=== PATIENT | female | born 1940 | race Caucasian/White ===

== ENCOUNTER → 2019-06-07 10:39 | Outpatient (BNVA) | payer MEDICARE, SELFPAY | PROVIDERS: Family Provider Family Medicine; PCP Family Medicine; Visit Provider Family Medicine | DX: C73 Malignant neoplasm of thyroid gland (principal); I10 Essential (primary) hypertension | CPT/HCPCS: 36415; 80053; 84439; 84443; 85025 ==

== ENCOUNTER 2019-07-10 10:17 | Emergency (ER) | payer MEDICARE, SELFPAY ==
[2019-07-10 10:19] VITALS: BP 153/94; PULSE 92; RESP 20; TEMP 36.6; O2SAT 87; BMI 21.4
--- NOTE | 2019-07-10 10:22 | ED_ITS ---
Entered by Dinah Stewart, acting as scribe for Daron Palomares DO HPI - SOB/Dyspnea General: Chief Complaint: Shortness of Breath/Dyspnea Stated Complaint: SOB Time Seen by Provider: 07/10/19 10:22 History of Present Illness: HPI Narrative: 79 yo female presents with shortness of breath. Pt states that she is coughing up blood. Pt states that she had thyroid cancer a few years ago. She was seen in November of last year had lung nodules she has not had a lot of follow-up on those. She is obviously stridorous during exam. Associated symptoms: Reports hemoptysis; Deny abdominal pain, chest pain, dizziness, extremity pain, fever(s), nausea, orthopnea, palpitations, polydipsia, polyuria, syncope or vomiting Review of Systems Const: Denies: fever, chills, body aches, fatigue, malaise or night sweats Eyes: Denies: change in vision or blurry vision ENMT: Denies: throat pain, oral sores/lesions, dental pain, nasal discharge or nasal congestion Card: Denies: chest pain, palpitations, irregular heart rhythm, edema, syncope, shortness of breath on exertion, shortness of breath when lying down or leg pain with exertion Resp: Reports: shortness of breath, wheezing and coughing up blood GI: Denies: abdominal pain, nausea, vomiting, vomiting blood, coffee grounds in vomit, difficulty swallowing, heartburn/indigestion, diarrhea, constipation, cramping, blood in stool or black tarry stool : Denies: flank pain, painful urination, urinary frequency, urinary urgency, urinary incontinence or blood in urine Musc: Denies: neck pain, back pain, extremity pain, extremity swelling, joint pain or joint swelling Skin/Breast: Denies: rash, itching or redness Neuro: Denies: headache, numbness in extremities, weakness in extremities, changes in sensation, lack of coordination, difficulty walking, frequent falls, dizziness, vertigo or confusion Psych: Denies: anxiety, depression, loss of interest, visual hallucinations, auditory hallucinations, suicidal ideation or homicidal ideation Endo: Denies: excessive urination, excessive thirst, tired all the time or cold intolerance Herman/Lymph: Denies: easy bruising, easy bleeding, petechiae, enlarged lymph nodes or tender lymph nodes PFSH ED PFSH: Statuses (acute, chronic, etc) shown below reflect problem list status as previously entered and may not be historically accurate Medical History (Updated 07/10/19 @ 15:41 by Daron Palomares DO) Anxiety (Acute) Thyroid cancer (Acute) Surgical History (Updated 07/10/19 @ 10:24 by Dinah Stewart) Hx of hernia repair (Acute) Hx of hysterectomy (Acute) Social History Smoking and tobacco status: former smoker Physical Exam Const: COMMON NORMALS: average body habitus, oriented x3 and alert GENERAL APPEARANCE: cooperative, comfortable, well kempt and well developed NUTRITIONAL APPEARANCE: not obese ORIENTATION/CONSCIOUSNESS: Yes awake, Yes oriented to person and Yes oriented to place HENMT: COMMON NORMALS: normocephalic, head/scalp atraumatic, EAC's normal, TM's normal bilaterally, external nose normal, moist oral mucous membranes and oropharynx normal HEAD & SCALP: normocephalic and atraumatic NOSE: big machine consultant al nose normal EXTERNAL AUDITORY CANAL: EAC's normal TYMPANIC MEMBRANE: TM's normal bilaterally MOUTH: oral and palatal mucosa normal, lip normal and tongue normal THROAT: posterior oropharynx normal and tonsils normal OTHER: Audible stridor on exam Eye: COMMON NORMALS: PERRL, EOMs intact bilaterally, conjunctivae normal and no scleral icterus CONJUNCTIVA: Yes conjunctivae normal PUPIL: Yes PERRL Neck/C-Spine: COMMON NORMALS: full ROM, no lymphadenopathy, supple, no meningeal signs and thyroid normal THYROID: thyroid normal and asymmetrical Lymph: LYMPHATIC: no lymphadenopathy noted Cardio: COMMON NORMALS: regular rate and regular rhythm RATE: regular rate RHYTHM: regular rhythm HEART SOUNDS: no murmurs GI: COMMON NORMALS: normal to inspection, nondistended, normoactive bowel sounds, soft to palpation and no hepatosplenomegaly PALPATION: Yes soft and Yes no hepatosplenomegaly : COMMON NORMALS: Yes no CVA tenderness BLADDER/KIDNEY EXAM: Yes no CVA tenderness Back/Pelvis: COMMON NORMALS: no CVA tenderness LUMBAR SPINE/LOWER BACK: Yes normal to inspection Extremity: COMMON NORMALS: no clubbing, cyanosis or edema, no calf tenderness and no pedal edema Neuro: COMMON NORMALS: oriented x3 SENSORIUM/ORIENTATION: Yes alert, Yes oriented to person and Yes oriented to place MENINGEAL SIGNS: Yes no meningeal signs Psych: APPEARANCE: Yes well kempt Skin: COMMON NORMALS: no rashes or lesions noted and skin turgor normal GENERAL SKIN EXAM: no rashes or lesions noted and turgor normal Course ED course: Patient has severe compromise of the airway at the level of the sternoclavicular joint. It is down to a diameter of 3 mm in width although it has a moderate length to it. Her oxygen saturations improved with supplemental oxygen she is awake and alert at this time there is nothing we can do in our facility to secure her airway at this time. Attempts to intubate her would likely be disastrous and cause significantly more bleeding. To secure her airway by tracheotomy would require sternotomy to get below the level of the tumor. The majority of the tumor is anterior so even angling down at the sternal notch would likely not be effective discussed with Dr. Link who reviewed the films and he agrees. Unfortunately this will require us to fly her to a tertiary care facility without securing an airway but at this time Dr. Link and I agree this is actually likely the best option. If we were to attempt to do this here surgically Dr. Link is concerned that bleeding would worsen and we do not have the appropriate equipment to manage a lesion such as this. Discussed with the family they expressed understanding will fly emergently to [facility] per their request. Consultations: Consultation #1: Contacted [facility] in [facility]. Per families reqest. Spoke with their call center, they stated that they will call us back when they have a physician online. Time: 14:12 Vital Signs: Vital signs: Vital Signs Temperature 97.9 F 07/10/19 10:19 Pulse Rate 88 07/10/19 15:22 Respiratory Rate 20 H 07/10/19 15:22 Blood Pressure 170/76 07/10/19 15:22 Pulse Oximetry 97 07/10/19 15:22 MDM - SOB/Dyspnea Lab Data: Labs: Lab Results 07/10/19 07/10/19 07/10/19 Range/Units 10:33 10:34 10:34 WBC 5.7 (4.0-10.0) 10^3/ uL RBC 4.38 (4.1-5.3) 10^6/u L Hgb 11.4 L (11.5-15.3) g/dL Hct 37.5 (37.0-47.0) % MCV 85.6 (81-99) fL MCH 26.0 L (28.0-34.0) pg MCHC 30.4 (30.0-36.0) g/dL RDW 13.7 (12.1-15.1) % Plt Count 321 (130-400) 10^3/c mm MPV 10.0 (7.4-10.4) fL Neut % (Auto) 63.1 % Lymph % (Auto) 26.8 % Metcalfe % (Auto) 7.7 % Eos % (Auto) 1.1 % Baso % (Auto) 0.9 % Neut # (Auto) 3.6 (1.8-7.7) 10^3/u L Lymph # (Auto) 1.5 (0.8-4.8) 10^3/u L Metcalfe # (Auto) 0.4 (0.2-0.9) 10^3/u L Eos # (Auto) 0.1 (0.0-0.8) 10^3/u L Baso # (Auto) 0.1 (0.0-0.1) 10^3/u L Nucleated RBC % (a uto) 0 % Nucleated RBCs # 0.0 /100WBC PT 14.00 H (10.5-13.3) SECO NDS INR 1.04 (0.8-1.2) Specimen Type Arterial Sample Site Radial, right ABG pH 7.41 (7.35-7.45) ABG pCO2 43.1 (35-45) mmHg ABG pO2 60.7 L (80.0-100.0) mmH g ABG HCO3 27.4 H (22-26) mmol/L ABG Base Excess 2.4 H (-2.0-2.0) mmol/ L Sathish Test Pos Hematocrit 36.6 L (37-47) % Hgb O2 Saturation 89.0 L (95-100) % Carboxyhemoglobin 0.7 (0.4-20.1) %THgb Methemoglobin 0.9 (0.4-1.5) % Total Hemoglobin 11.9 L (12-16) g/dL O2 Delivery Device Room air FiO2 21.0 % Manager Government ID ed Sodium (136-145) mmol/L Potassium (3.5-5.1) mmol/L Chloride (98-107) mmol/L Carbon Dioxide (22-29) mmol/L Anion Gap (5-19) BUN (8-23) mg/dL Creatinine (0.5-0.9) mg/dL Glucose (65-115) mg/dL Calcium (8.5-10.5) mg/dL Total Bilirubin (0.15-1.2) mg/dL AST (0-32) U/L ALT (0-33) U/L Alkaline Phosphata se (35-105) IU/L Total Protein (6.6-8.7) g/dL Albumin (3.5-5.2) g/dL Globulin (1.3-4.6) g/dL Lipase (13-60) U/L Influenza Type A A g (Negative) POC Influenza B Ag (Negative) 07/10/19 07/10/19 Range/Units 10:34 10:43 WBC (4.0-10.0) 10^3/ uL RBC (4.1-5.3) 10^6/u L Hgb (11.5-15.3) g/dL Hct (37.0-47.0) % MCV (81-99) fL MCH (28.0-34.0) pg MCHC (30.0-36.0) g/dL RDW (12.1-15.1) % Plt Count (130-400) 10^3/c mm MPV (7.4-10.4) fL Neut % (Auto) % Lymph % (Auto) % Metcalfe % (Auto) % Eos % (Auto) % Baso % (Auto) % Neut # (Auto) (1.8-7.7) 10^3/u L Lymph # (Auto) (0.8-4.8) 10^3/u L Metcalfe # (Auto) (0.2-0.9) 10^3/u L Eos # (Auto) (0.0-0.8) 10^3/u L Baso # (Auto) (0.0-0.1) 10^3/u L Nucleated RBC % (a uto) % Nucleated RBCs # /100WBC PT (10.5-13.3) SECO NDS INR (0.8-1.2) Specimen Type Sample Site ABG pH (7.35-7.45) ABG pCO2 (35-45) mmHg ABG pO2 (80.0-100.0) mmH g ABG HCO3 (22-26) mmol/L ABG Base Excess (-2.0-2.0) mmol/ L Sathish Test Hematocrit (37-47) % Hgb O2 Saturation (95-100) % Carboxyhemoglobin (0.4-20.1) %THgb Methemoglobin (0.4-1.5) % Total Hemoglobin (12-16) g/dL O2 Delivery Device FiO2 % Manager Government ID Sodium 138 (136-145) mmol/L Potassium 4.0 (3.5-5.1) mmol/L Chloride 102 (98-107) mmol/L Carbon Dioxide 25 (22-29) mmol/L Anion Gap 15.0 (5-19) BUN 18 (8-23) mg/dL Creatinine 0.5 (0.5-0.9) mg/dL Glucose 120 H (65-115) mg/dL Calcium 9.1 (8.5-10.5) mg/dL Total Bilirubin 0.4 (0.15-1.2) mg/dL AST 14 (0-32) U/L ALT 8 (0-33) U/L Alkaline Phosphata se 122 H (35-105) IU/L Total Protein 6.9 (6.6-8.7) g/dL Albumin 3.3 L (3.5-5.2) g/dL Globulin 3.6 (1.3-4.6) g/dL Lipase 31 (13-60) U/L Influenza Type A A g Negative (Negative) POC Influenza B Ag Negative (Negative) Discharge Plan Discharge Patient Disposition: Transfer to ED Clinical Impression: Acute airway obstruction, 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 Condition: Stable Prescriptions: No Action carvedilol 3.125 mg tablet 3.125 mg PO BID RF: 0 isosorbide mononitrate 30 mg tablet extended release 24 hr 30 mg PO DAILY RF: 0 levothyroxine 88 mcg capsule 88 mcg PO DAILY RF: 0 clotrimazole-betamethasone 1-0.05 % lotion 1 applic TOPICAL BID RF: 0 pantoprazole [Protonix] 40 mg tablet,delayed release (DR/EC) 40 mg PO DAILY PRN (Reason: Heartburn) RF: 0 aspirin 81 mg Tablet,Chewable 81 mg PO DAILY RF: 0 triamcinolone acetonide 0.1 % cream 1 applic TOPICAL DAILY PRN (Reason: PRN) RF: 0 Referrals: Justino Petersen MD [Primary Care Provider] - Discharge Date/Time: 07/10/19 15:43 Coding Level of Care Code ED Supervisor Of Officials for Chg Fwd Exam Problem Focused The documentation recorded by the Terry aguilar Kialy, accurately reflects the service I personally performed and the decisions made by Jelani florian Curtis L, Jul 10, 2019 10:17
--- NOTE | 2019-07-10 10:27 | XR_ITS ---
WS: [id number] ONE VIEW CHEST HISTORY: 79 years old Female with dyspnea AP upright chest comparison 12/26/2018. FINDINGS: Numerous bilateral pulmonary nodules and possibly right midlung pleural-based nodule are reidentified . Nodules appear slightly enlarged from prior exam. No pneumothorax, pleural effusion, or consolidati on/atelectasis. Heart size and pulmonary vascular markings unremarkable. Thoracic aorta atheroscleros is. Spine spondylosis. No subdiaphragmatic free air. XR/XR chest 1V portable [id number] IMPRESSION: 1. No acute cardiopulmonary findings. 2. Slight progression bilateral noncalcified pulmonary nodules. Differential co nsiderations metastatic disease, fungal/atypical pneumonia, and sarcoidosis.
--- NOTE | 2019-07-10 10:28 | ECG_ITS ---
Measurements Intervals Etters Rate: 80 P: 70 KY: 135 QRS: 54 QRSD: 98 T: 43 QT: 429 QTc: 497 SINUS RHYTHM POSSIBLE LEFT ATRIAL ENLARGEMENT [-0.1mV P WAVE IN V1/V2] Compared to ECG 11/21/2015 03:40:02 Myocardial infarct finding no longer present Electronically Signed On 07-11-2019 0:19:07 SIDE STITCHER by Dora Altamirano M.D. [id number]
[2019-07-10] MEDS: sodium chloride 0.9% 500 ML 999 ML IV (10:39)
[2019-07-10 10:44] LABS: ABG PCO2 43.1 mmHg (35-45); ABG PH Result 7.41 (7.35-7.45); Arterial Blood Gas Hematocrit 36.6 % (37-47); Base Excess ABG 2.4 mmol/L (-2.0-2.0); Blood Gas Allen Test Pos; Blood Gas Sample Site Radial, right; Blood Gas Sample Type Arterial; Carboxyhemoglobin 0.7 %THgb (0.4-20.1); HCO3 ABG 27.4 mmol/L (22-26); Methemoglobin 0.9 % (0.4-1.5); Oxygen Device ROOM AIR; PO2 ABG 60.7 mmHg (80.0-100.0); Total Hemoglobin 11.9 g/dL (12-16)
[2019-07-10 10:46] LABS: Basophils # 0.1 10^3/uL (0.0-0.1); Basophils % 0.9 %; Eosinophils # 0.1 10^3/uL (0.0-0.8); Eosinophils % 1.1 %; Hematocrit 37.5 % (37.0-47.0); Hemoglobin 11.4 g/dL (11.5-15.3); Lymphocytes # 1.5 10^3/uL (0.8-4.8); Lymphocytes % 26.8 %; Mean Corpuscular HGB Conc 30.4 g/dL (30.0-36.0); Mean Corpuscular Volume 85.6 fL (81-99); Monocytes # 0.4 10^3/uL (0.2-0.9); Monocytes % 7.7 %; Neutrophils # 3.6 10^3/uL (1.8-7.7); Neutrophils % 63.1 %; Nucleated Red Blood Cells % 0 %; Platelet Count 321 10^3/cmm (130-400); Red Blood Count 4.38 10^6/uL (4.1-5.3); Red Cell Distribution Width 13.7 % (12.1-15.1); White Blood Count 5.7 10^3/uL (4.0-10.0)
[2019-07-10 10:55] LABS: INR 1.04 (0.8-1.2)
[2019-07-10 11:01] LABS: Alanine Aminotransferase 8 U/L (0-33); Albumin Level 3.3 g/dL (3.5-5.2); Alkaline Phosphatase 122 IU/L (35-105); Aspartate Amino Transferase 14 U/L (0-32); Blood Urea Nitrogen 18 mg/dL (8-23); Calcium 9.1 mg/dL (8.5-10.5); Carbon Dioxide 25 mmol/L (22-29); Chloride 102 mmol/L (98-107); Globulin 3.6 g/dL (1.3-4.6); Glucose 120 mg/dL (65-115); Lipase 31 U/L (13-60); Sodium 138 mmol/L (136-145); Total Bilirubin 0.4 mg/dL (0.15-1.2); Total Protein 6.9 g/dL (6.6-8.7)
[2019-07-10 11:15] LABS: Influenza A by IFA Negative (Negative); Influenza B by IFA Negative (Negative)
[2019-07-10] MEDS: cefTRIAXone 1,000 MG in sodium chloride 0.9% (plus) 50 ML 100 MG IV (12:12)
[2019-07-10 12:24] VITALS: PULSE 78; RESP 18; O2SAT 100
[2019-07-10] MEDS: ipratropium-albuterol 3 mL Neb INHALATION (12:24)
[2019-07-10 12:28] VITALS: PULSE 81
[2019-07-10] MEDS: azithromycin 500 MG in sodium chloride 0.9% 250 ML 250 MG IV (12:47)
--- NOTE | 2019-07-10 12:47 | CT_ITS ---
WS: [id number] CT PULMONARY ARTERY ANGIOGRAM HISTORY: 79 years old Female with dyspnea COMPARISON: CT chest 01/27/2019 and 12/26/2018 TECHNIQUE: 1.25 mm post IV contrast axial CT images of the chest with 2-D reformations and dose reduc tion technique. DLP: 422.[address] scans at [facility] use at least one of these dose optimization techniques: automat ed exposure control; mA and/or kV adjustment per patient size (includes targeted exams where dose is matched to clinical indication); or iterative reconstruction. FINDINGS: Between the pulmonary artery trunk and bilateral segmental pulmonary arteries, no intraluminal fillin g defect is seen. No pulmonary artery or venous enlargement. No obvious pulmonary arteriovenous malfo rmation. Bilateral noncalcified pulmonary nodules are similar in size. Right lateral midlung zone pleural nodu le slightly enlarged measuring 14 x 24 mm compared to 17 x 11 mm previously. No pleural effusion, pne umothorax or interval pleural or pulmonary nodule seen. Right upper lobe anterior segment focal irreg ular opacity is resolved. No interval consolidation or atelectasis. Progression of superior mediastinal mass inseparable from the anterior esophagus with invasion and oropeza btotal occlusion of the upper third trachea the level of the medial clavicular heads. The mass measur es 2.4 x 2.5 cm compared to 2.2 x 2.1 cm. Prevascular, bilateral hilar, and subcarinal soft tissue at tenuation is without significant change. Mild cardiomegaly. No pericardial thickening or effusion. Ao rtic and mitral annular calcifications. Thoracic aorta atheromatous plaque without evidence of aneury sm. Remainder the esophagus and gastroesophageal junction unremarkable. Remainder of the trachea and central bronchi are unremarkable. In the upper abdomen, the spleen, adrenal glands, upper and mid kidneys, pancreas body and tail, and liver appear unremarkable. Stomach is decompressed with probable pseudowall thickening. Included smal l bowel and large bowel are not abnormally distended. Abdominal aorta atherosclerosis without aneurys m. No fracture, osteolytic or osteoblastic change. Notified Daron Palomares DO at 07/10/2019 1:[address]/CT angio chest PE protcl [id number] IMPRESSION: 1. Interval enlargement superior mediastinal mass inseparable from the anterior esophagus and progression of posterior invasion of the trachea contributing to severe tracheal stenosis. 2. No evidence of pulmonary embolus. 3. Slightly enlarged right lateral mid pleural-based mass and no significant ch bernabe in size and number of bilateral pulmonary nodules, primary consideration i s metastatic disease. 4. Prevascular and bilateral hilar nonmass-like soft tissue attenuation, unchan ged. 5. Decompressed stomach with probable pseudowall thickening. Gastritis or gastr ic wall infiltrative process not entirely excluded. Follow-up as clinically ind icated.
[2019-07-10] MEDS: iohexol 350 mg/mL 100 mL Btl IV (13:09)
[2019-07-10 15:22] VITALS: BP 170/76; PULSE 88; RESP 20; O2SAT 97
== END 2019-07-10 15:43 ==
PROVIDERS: Emergency Provider Family Medicine; Family Provider Family Medicine; PCP Family Medicine
DX: J98.8 Other specified respiratory disorders (principal); C79.9 Secondary malignant neoplasm of unspecified site; Z85.850 Personal history of malignant neoplasm of thyroid; Z87.891 Personal history of nicotine dependence
CPT/HCPCS: 36415; 36600; 71045; 71275; 80053; 82805; 83690; 85025; 85610; 87040; 87804; 93005; 94640; 96360; 96365; 96366; 96368; 96375; 99282; 99285; J0456; J0696; J2930; J7040; J7050; Q9967

== ENCOUNTER 2019-08-13 06:28 | Day surgery (SDC) | payer MEDICARE, SELFPAY ==
[2019-08-12 13:59] VITALS: BMI 20.2
[2019-08-13 07:04] VITALS: BP 149/69; PULSE 78; RESP 18; TEMP 36.7; O2SAT 97
[2019-08-13] MEDS: sodium chloride 0.9% 1,000 ML 30 ML IV (07:11)
--- NOTE | 2019-08-13 08:02 | ANES.PREANE2 ---
Pre-Anesthetic Assessment Pre-Anesthetic Assessment: Height/Weight: Height 1.63 m Weight 53.524 kg Temp Pulse Resp BP Pulse Ox 98.0 F 78 18 149/69 97 08/13/19 07:04 08/13/19 07:04 08/13/19 07:04 08/13/19 07:04 08/13/19 07:04 Preop Diagnosis: Tracheal Mass Proposed Procedure: Operation Date: 08/13/19 08:30 Proposed Procedures p Bronchoscopy 97926 J39.8(Not Applicable) - Yovani Calderon MD Was Beta Nicole taken within 24 hours: Yes Last intake: Intake Last Liquid Date 08/12/19 Last Liquid Time 21:00 Last Solid Date 08/12/19 Last Solid Time 21:00 Social: Social History: No alcohol and No tobacco Exam: Pre-Anes Outpt Exam: alert, oriented x 3, clear to auscultation bilaterally and regular rate & rhythm Airway: Submandibular: WNL Cervical ROM: WNL MP: 2 Dentition: False History/ROS: No significant history except as noted Pulmonary: Pulmonary: Asthma Comments: 3mm airway mass removed last month CV/HEM: CV/HEM: HTN : : None reported Hepatic: Hepatic: None reported GI: GI: None reported Metabolic: Metabolic: Thyroid Musc/skel: Musc/skel: None reported Neuropsych: Neuropsych: Anxiety (small CVA several years ago. no deficits) and CVA Anesthetic Plan: ASA status: 3 Anesthesia: Anesthesia Evaluation and MAC Risk of > 500 ml blood loss (7ml/kg in children): No Meds/Allergies Current Medications: Current Medications Generic Name Dose Route Start Last Admin Trade Name Freq PRN Reason Stop Dose Admin Sodium Chloride 1,000 mls @ 30 ml s/hr 08/13/19 07:00 08/13/19 07:11 Sodium Chloride 0.9% IV 08/14/19 06:59 30 mls/hr .Q24H BETH Administration PFSH Anesthesia PFSH: Medical History (Updated 08/09/19 @ 11:33 by Yovani Calderon MD) Anxiety Essential hypertension Thyroid cancer Thyroid malignant neoplasm Surgical History (Updated 08/09/19 @ 11:27 by Yovani Calderon MD) History of bronchoscopy History of throat surgery Hx of hernia repair Hx of hysterectomy Social History Smoking and tobacco status: never smoked Second hand smoke exposure: Yes Alcohol intake: former Lives independently: Yes Household members: family Current occupational status: retired History of recent travel: No Current gender identity: Female Data Anesthesia Cardiac Studies: No Data to Display
--- NOTE | 2019-08-13 10:08 | W.PM.OPSUD ---
Surgery/Procedure H&P Update DATE OF PROCEDURE: August 13, 2019 DATE H&P PERFORMED: 08/09/19 PREOP DIAGNOSIS: Tracheal Mass PLANNED PROCEDURE: Patient with a history of metastatic thyroid cancer with invading into luminal tracheal mass for which he underwent rigid bronchoscopy and debulking. Patient is here today for inspection of the airway to assess the efficacy of the procedure. There is no significant change in the last history and physical exam. Operation Date: 08/13/19 08:30 Proposed Procedures p Bronchoscopy 06400 J39.8(Not Applicable) - Biplab MD Kvng
[2019-08-13] MEDS: lidocaine 1% INJ 20 mL XX (10:50)
--- NOTE | 2019-08-13 11:02 | PM.OP ---
Operative Report Date of procedure: August 13, 2019 Pre-op Diagnosis: Tracheal Mass Post-op Diagnosis: Same Brief History: This is an 79-year-old female with metastatic thyroid cancer with locally advanced tumor with endoluminal tracheal lesion with compromise of the airway with a 3 mm airway for which she underwent debulking of the tumor mass. The patient is here for bronchoscopy inspection of the airway. Procedure: Name of the procedure: Bronchoscopy with inspection of the airway and control of bleeding. Indication: Recent tumor debulking for endoluminal tracheal mass from metastatic thyroid cancer. Anesthesia: Monitored anesthesia care. Local anesthesia: 1% lidocaine instilled on the vocal cords, 3 mL, 1% lidocaine in the airway and melissa a total of 6 mL. Description of the procedure: After discussion of risk and benefit and informed consent was obtained. Monitored anesthesia care was initiated by the anesthesia team after the patient was brought to the OR. The patient was optimally positioned. The bronchoscope was advanced through the mouth. The vocal cords and epiglottis were anesthetized with 1% lidocaine. The bronchoscope was passed through the vocal cords and the airway was anesthetized with 1% lidocaine again. Erythematous upper trachea. The upper trachea appeared somewhat narrowed from the endoluminal lesion for which she underwent the debulking procedure. However, the bronchoscope could be easily passed without any difficulty. There is no fungating growth. This mucosal erythema and swelling is present in the initial few centimeter of the trachea. The melissa was sharp. The melissa and the right and left mainstem bronchi are sedated with 1% lidocaine. In a systematic manner then bilateral lung airways were inspected. All airways appeared patent. There is no significant erythema, mucus or endobronchial lesion. The mucosa was very friable and easily bled to touch from the bronchoscope. Multiple pictures were taken. The bronchoscope was then slowly withdrawn and the upper trachea was inspected again and the aforementioned findings are confirmed. Complications: There is no immediate complications. Duration of the procedure: 6 minutes.
[2019-08-13 11:03] VITALS: BP 85/47; PULSE 80; RESP 16; TEMP 36.6; O2SAT 96
[2019-08-13 11:21] VITALS: BP 106/62; PULSE 80; RESP 18; O2SAT 92
[2019-08-13 11:37] VITALS: BP 121/59; PULSE 73; RESP 18; TEMP 36.6; O2SAT 96
== END 2019-08-13 11:55 | disposition home or self-care (01) ==
PROVIDERS: Family Provider Family Medicine; PCP Family Medicine; Visit Provider Internal Medicine Critical Care Medicine
PROC: 0BJ08ZZ Inspection of Tracheobronchial Tree, Via Natural or Artificial Opening Endoscopic (ICD-10-PCS; CPT 31622; principal; 2019-08-13 08:30)
DX: J39.8 Other specified diseases of upper respiratory tract (principal); Z79.82 Long term (current) use of aspirin; I10 Essential (primary) hypertension
CPT/HCPCS: 31622; 12345; J2001; J2704; J3010; J7030

== ENCOUNTER 2020-06-05 09:24 | Outpatient (CLI) | payer MEDICARE, SELFPAY ==
--- NOTE | 2020-06-05 09:38 | CT_ITS ---
WS: [id number] CT CHEST WITHOUT INTRAVENOUS CONTRAST HISTORY: TRACHEAL MASS TECHNIQUE: Contiguous 5 mm axial imaging performed on the thorax. Coronal and sagittal reformats are submitted. All CT scans at [facility] use at least one of these dose optimization techniq ues: automated exposure control; mA and/or kV adjustment per patient size (includes targeted exams wh ere dose is matched to clinical indication); or iterative reconstruction. CONTRAST: None DLP: 304.71 mGy.cm COMPARISON: 07/10/2019 Lungs and central airway: Marked pulmonary hyperinflation. Changes of chronic emphysema. There are in numerable pulmonary nodules ranging in size from a few millimeters to 17 mm throughout both lungs. Pr eviously described subpleural mass with obtuse margins in the central RIGHT thorax has decreased in s ize. No pneumonia. Pleura: Normal. No pleural effusion. Heart and pericardium: Heart is enlarged. No pericardial effusion. Mediastinum and sharon: There is a lobulated soft tissue mass beginning in the superior mediastinum jus t to the LEFT of midline. Lobulated soft tissue mass measures 2.8 x 1.5 cm. Mass is situated between the trachea and the LEFT carotid artery. There is displacement to the RIGHT and anteriorly of the tra katie. There is invasion and soft tissue thickening extending into the upper esophagus. Mild narrowing of the esophageal lumen. This mass was also present on the prior study of 07/10/2019 without obvious p rogression. There is less soft tissue in the posterior and LEFT lateral trachea. Obliteration of the esophagus at the level of the melissa. Significance is uncertain. Cannot exclude additional mass or no dule but there is no obstruction evident. Vessels: Moderate atherosclerosis aorta with ectasia. Pulmonary artery is enlarged. Chest wall and lower neck: No soft tissue masses. Upper abdomen: No adrenal mass. Lack of contrast decreases sensitivity for metastatic lesions. Osseous structures: Increase in thoracic kyphosis. Osteopenia. CT/CT chest wo con [id number] IMPRESSION: 1. Innumerable noncalcified pulmonary nodules ranging in size from 2 to 17 mm. Nodules have increased in size and number since the prior study. 2. Severe chronic emphysema. 3. Lobulated soft tissue mass with invasion into the trachea and esophagus in the superior mediastinum measures 2.8 x 1.5 cm. Slightly improved invasion into the trachea as compared to 07/10/2019. Partial obliteration of the esophageal ching men. Obliteration of the esophageal lumen at the melissa cannot be further evalu ated without IV contrast. 4. Lack of IV contrast limits sensitivity of this examination for progression of disease and metastatic changes. 5. Patient has known mediastinal and hilar lymphadenopathy which is difficult to evaluate for significant progression or change since 07/10/2019.
--- NOTE | 2020-06-05 09:38 | FL_ITS ---
WS: [id number] MODIFIED BARIUM SWALLOW HISTORY: Other dysphagia FLUOROSCOPY TIME: 2.1 minutes. Modified barium swallow was performed by the speech pathologist. Fluoroscopy was provided with the pa tient in a lateral projection. Multiple food consistencies were provided. No aspiration or laryngeal penetration. Mild delay in forming the food bolus and swallowing. There is significant coating of the pharynx after swallowing. More significant coating with the liquids. Ther e is also mild dysphagia and dysmotility of the esophagus. No complete obstruction as the esophagus d id intermittently clear of the retained products. FL/FL barium swallow modifd [id number] IMPRESSION: 1. No aspiration or laryngeal penetration. 2. Significant residual pharyngeal coating with barium which did not clear eas genaro with double swallows. Please see speech therapist report also for recommendations.
== END 2020-06-05 09:25 | disposition home or self-care (01) ==
LOC: RAD 09:26
PROVIDERS: Family Provider Family Medicine; PCP Family Medicine; Visit Provider Internal Medicine Critical Care Medicine
DX: J39.8 Other specified diseases of upper respiratory tract (principal); R13.10 Dysphagia, unspecified; R59.0 Localized enlarged lymph nodes; J43.9 Emphysema, unspecified; R91.8 Other nonspecific abnormal finding of lung field
CPT/HCPCS: 71250; 74230; 92611

== ENCOUNTER 2020-06-06 08:00 | Outpatient (CLI) | payer MEDICARE, SELFPAY ==
--- NOTE | 2020-06-06 08:07 | FL_ITS ---
WS: [id number] ESOPHAGRAM WITH FLUOROSCOPY HISTORY: DYSPHAGIA COMPARISON: None available. FLUOROSCOPY TIME: 1.3 minutes. Business Librarian radiograph: Increase in cervical lordosis with cervical spondylosis. Esophagus and swallowing function: Patient was able to swallow the barium mixture without difficulty. There is tortuosity of the cervical esophagus. There are no persistent filling defects identified. M ild cricopharyngeal spasm. No persistent luminal narrowing. There is a small esophageal diverticulum extending to the RIGHT of midline which intermittently as visualized. Toward the end of the examinati on there was a few episodes of aspiration which cause minimal coughing. Barium tablet was swallowed w ithout difficulty. Cervical osteophytes encroaching into the posterior cervical esophagus at the C7 level. Gastroesophageal reflux: None. Hiatal hernia: No hiatal hernia. FL/FL barium swallow [id number] IMPRESSION: 1. Tortuous esophagus with mild dysmotility. No significant stricture or mucos al neoplasm seen on this exam. Very mild narrowing of the esophagus at the C6-7 level probably due to cervical osteophytes. 2. Towards the end of the examination there were a few episodes of laryngeal a spiration which causes mild spontaneous coughing.
== END 2020-06-06 08:01 | disposition home or self-care (01) ==
LOC: RAD 08:04
PROVIDERS: PCP Family Medicine; Visit Provider Specialist
DX: R13.10 Dysphagia, unspecified (principal)
CPT/HCPCS: 74220

== ENCOUNTER → 2021-02-21 12:05 | Outpatient (BNVA) | payer MEDICARE, SELFPAY | PROVIDERS: PCP Family Medicine; Visit Provider Family Medicine | DX: C73 Malignant neoplasm of thyroid gland (principal); I10 Essential (primary) hypertension; C44.41 Basal cell carcinoma of skin of scalp and neck | CPT/HCPCS: 80053; 84439; 84443; 85025 ==

== ENCOUNTER 2022-02-25 13:22 | Emergency (ER) | payer MEDICARE, SELFPAY ==
[2022-02-25 13:45] VITALS: BP 162/87; PULSE 84; RESP 18; TEMP 36.7; O2SAT 95; BMI 21.1
[2022-02-25 14:45] LABS: Basophils # 0.1 10^3/uL (0.0-0.1); Basophils % 0.7 %; Eosinophils # 0.1 10^3/uL (0.0-0.8); Eosinophils % 1.6 %; Hematocrit 39.1 % (37.0-47.0); Lymphocytes # 1.8 10^3/uL (0.8-4.8); Lymphocytes % 26.5 %; Mean Corpuscular HGB Conc 30.7 g/dL (30.0-36.0); Mean Corpuscular Hemoglobin 27.8 pg (28.0-34.0); Mean Corpuscular Volume 90.7 fl (81-99); Mean Platelet Volume 9.5 fL (7.4-10.4); Monocytes # 0.6 10^3/uL (0.2-0.9); Monocytes % 8.1 %; Neutrophils # 4.28 10^3/uL (1.8-7.7); Nucleated Red Blood Cells % 0 %; Platelet Count 272 10^3/cmm (130-400); Red Blood Count 4.31 10^6/uL (4.1-5.3); Red Cell Distribution Width 14.8 % (12.1-15.1); White Blood Count 6.8 10^3/uL (4.0-10.0)
[2022-02-25 15:06] LABS: Alanine Aminotransferase < 5 U/L (0-33); Albumin Level 3.6 g/dL (3.5-5.2); Alkaline Phosphatase 112 U/L (35-105); Aspartate Amino Transferase 14 U/L (0-32); Blood Urea Nitrogen 12 mg/dL (8-23); Calcium 8.9 mg/dL (8.5-10.5); Carbon Dioxide 30 mmol/L (22-29); Chloride 102 mmol/L (98-107); Globulin 3.4 g/dL (1.3-4.6); Glucose 101 mg/dL (65-115); Osmolality Calculated 292 mOsm/kg (285-295); Sodium 141 mmol/L (136-145); Total Bilirubin 0.8 mg/dL (0.15-1.2)
[2022-02-25 15:20] LABS: Urine Appearance Cloudy (CLEAR); Urine Color Yellow (Yellow)
[2022-02-25 15:21] LABS: Add Urine Microscopic? YES; Bilirubin Urine Neg (Negative); Blood Urine 2+ (Negative); Glucose Urine UA Norm (Normal); Ketones Urine 1+ (Negative); Leukocyte Esterase Urine 2+ (Negative); Nitrate Urine Negative (Negative); Protein Urine Neg (Negative); Specific Gravity, Urine 1.015 (1.005-1.030); Urobilinogen Urine 4 mg/dL (Negative); pH Urine 6 (5-7)
[2022-02-25 15:22] LABS: Add Urine Culture? Yes; Bacteria Urine 4+ /hpf; RBC Urine 0-4 /hpf (0-2); WBC Urine 25-40 /hpf (0-5)
--- NOTE | 2022-02-25 17:29 | W.ED.GENADLT ---
Documented by User: Ijeoma Guzman MD 03/04/22 11:02 HPI - General Adult General: Chief complaint: General Medical Stated complaint: Trouble swallowing, unsteady Time Seen by Provider: 02/25/22 17:27 History of Present Illness: Patient is an 81-year-old female with a history of actinic keratosis, throat cancer status postresection presenting to the emergency room with concerns of dyspnea and difficulty swallowing. Patient has noticed symptoms for the last 3 days. In the past, patient has hx of throat cancer with erosion into the trachea requiring surgical manipulation. Onset:3 days ago Duration:3 days Location:home Severity:moderate Associated symptoms: Reports dyspnea; Deny chest pain, nausea, rash, palpitations or vomiting Review of Systems Const: Denies: fever(s) or chills Eyes: Denies: change in vision ENMT: Reports: other (+difficulty swallowing); Denies: mouth pain Card: Denies: chest pain or palpitations Resp: Reports: dyspnea; Denies: non-productive cough GI: Denies: abdominal pain, nausea, vomiting or diarrhea : Denies: dysuria Musc: Denies: extremity pain Skin/Breast: Denies: rash or new lesions Neuro: Denies: weakness in extremities Psych: Reports: other (Normal mood) Herman/Lymph: Denies: easy bruising PFSH ED PFSH: Medical History Anxiety Essential hypertension Thyroid cancer Thyroid malignant neoplasm Surgical History History of bronchoscopy History of throat surgery Hx of hernia repair Hx of hysterectomy Family History Other Heart disease Social History Smoking and tobacco status: never smoked Second hand smoke exposure: Yes Alcohol intake: former Lives independently: Yes Household members: family Current occupational status: retired History of recent travel: No Current gender identity: Female Physical Exam Const: COMMON NORMALS: alert HENMT: COMMON NORMALS: atraumatic HEAD & SCALP: atraumatic MOUTH: moist mucous membranes not abnormal Eye: COMMON NORMALS: EOMs intact bilaterally and conjunctivae normal CONJUNCTIVA: Yes conjunctivae normal Neck/C-Spine: COMMON NORMALS: full ROM and supple Resp: COMMON NORMALS: normal respiratory effort and clear to auscultation bilaterally AUSCULTATION: clear to auscultation bilaterally Cardio: COMMON NORMALS: regular rate RATE: regular rate GI: COMMON NORMALS: Soft to palpation and non-tender PALPATION: Yes Soft to palpation Extremity: COMMON NORMALS: full ROM Neuro: SENSORIUM/ORIENTATION: Yes alert MOTOR EXAM: No Abnormal motor strength present and Other motor observations present (no focal motor deficits) Psych: COMMON NORMALS: speech normal SPEECH: Yes normal speech MOOD & AFFECT: Yes euthymic mood Course Vital Signs: Vital signs: Vital Signs Temperature 98.1 F 02/25/22 13:45 Pulse Rate 107 H 02/26/22 01:12 Respiratory Rate 17 02/26/22 01:12 Blood Pressure 155/89 02/26/22 01:12 Pulse Oximetry 93 02/26/22 01:12 Oxygen Delivery Me thod 02/26/22 00:37 [facility] - General Adult Lab Data : 02/25/22 14:31 02/25/22 14:[address] 02/25/22 17:49 IMPRESSION: 1. Progressive 4.2 x 2.5 x 3.6 cm mass invading the left side of the trachea and anterior wall of the esophagus consistent with history of thyroid carcinoma. 2. New large enhancing 2.5 cm lymph node in the left lower neck lateral fully thyroid consistent with metastatic adenopathy. The left internal jugular vein is compressed between the mass and this enlarged lymph node with occlusion. 3. Multiple metastatic pulmonary nodules, consistent with pulmonary metastases better visualized on prior chest CT. Fleischner protocol does not apply as there is known history of malignancy. Head CT 02/25/22 22:34 IMPRESSION: No intracranial lesion or injury Chest X-Ray 02/26/22 00:06 IMPRESSION: 1. Interval appearance of mild to moderate right basilar atelectasis and/or infiltrate and/or effusion. 2. Stable COPD . 3. Mild cardiomegaly. Laboratory Results WBC 6.8 10^3/uL (4.0-10.0) 02/25/22 14:31 RBC 4.31 10^6/uL (4.1-5.3) 02/25/22 14:31 Hgb 12.0 g/dL (11.5-15.3) 02/25/22 14:31 Hct 39.1 % (37.0-47.0) 02/25/22 14:31 MCV 90.7 fl (81-99) 02/25/22 14:31 MCH 27.8 pg (28.0-34.0) L 02/25/22 14:31 MCHC 30.7 g/dL (30.0-36.0) 02/25/22 14: RDW 14.8 % (12.1-15.1) 02/25/22 14:31 Plt Count 272 10^3/cmm (130-400) 02/25/22 14:31 MPV 9.5 fL (7.4-10.4) 02/25/22 14:31 Neut % (Auto) 63.0 % 02/25/22 14:31 Lymph % (Auto) 26.5 % 02/25/22 14:31 [place] % (Auto) 8.1 % 02/25/22 14:31 Eos % (Auto) 1.6 % 02/25/22 14:31 Baso % (Auto) 0.7 % 02/25/22 14:31 Neut # (Auto) 4.28 10^3/uL (1.8-7.7) 02/25/22 14:31 Lymph # (Auto) 1.8 10^3/uL (0.8-4.8) 02/25/22 14:31 [place] # (Auto) 0.6 10^3/uL (0.2-0.9) 02/25/22 14: Eos # (Auto) 0.1 10^3/uL (0.0-0.8) 02/25/22 14:31 Baso # (Auto) 0.1 10^3/uL (0.0-0.1) 02/25/22 14: Nucleated RBC % (auto) 0 % 02/25/22 14: Nucleated RBCs # 0.0 /100WBC 02/25/22 14:31 Sodium 141 mmol/L (136-145) 02/25/22 14:31 Potassium 4.0 mmol/L (3.5-5.1) 02/25/22 14:31 Chloride 102 mmol/L (98-107) 02/25/22 14:31 Carbon Dioxide 30 mmol/L (22-29) H 02/25/22 14:31 Anion Gap 13.0 (5-19) 02/25/22 14:31 BUN 12 mg/dL (8-23) 02/25/22 14:31 Creatinine 0.5 mg/dL (0.5-0.9) 02/25/22 14:31 GFR Calculation Not Reportable 02/25/22 14:31 Glucose 101 mg/dL (65-115) 02/25/22 14:31 Calculated Osmolality 292 mOsm/kg (285-295) 02/25/22 14:31 Calcium 8.9 mg/dL (8.5-10.5) 02/25/22 14:31 Total Bilirubin 0.8 mg/dL (0.15-1.2) 02/25/22 14:31 AST 14 U/L (0-32) 02/25/22 14:31 ALT < 5 U/L (0-33) 02/25/22 14:31 Alkaline Phosphatase 112 U/L (35-105) H 02/25/22 14:31 Total Protein 7.0 g/dL (6.6-8.7) 02/25/22 14:31 Albumin 3.6 g/dL (3.5-5.2) 02/25/22 14:31 Globulin 3.4 g/dL (1.3-4.6) 02/25/22 14:31 Urine Color Yellow (Yellow) 02/25/22 14:25 Urine Appearance Cloudy (CLEAR) 02/25/22 14:25 Urine pH 6 (5-7) 02/25/22 14:25 Ur Specific [place] 1.015 (1.005-1.030) 02/25/22 14:25 Urine Protein Neg (Negative) 02/25/22 14:25 Urine Glucose (UA) Norm (Normal) 02/25/22 14:25 Urine Ketones 1+ (Negative) H 02/25/22 14:25 Urine Blood 2+ (Negative) H 02/25/22 14:25 Urine Nitrate Negative (Negative) 02/25/22 14:25 Urine Bilirubin Neg (Negative) 02/25/22 14:25 Urine Urobilinogen 4 mg/dL (Negative) H 02/25/22 14:25 Ur Leukocyte Esterase 2+ (Negative) H 02/25/22 14:25 Urine RBC 0-4 /hpf (0-2) H 02/25/22 14:25 Urine WBC 25-40 /hpf (0-5) H 02/25/22 14:25 Ur Squamous Epith Cells 5-10 /hpf (0-5) H 02/25/22 14:25 Amorphous Sediment Not Reportable 02/25/22 14:25 Urine Bacteria 4+ /hpf (NONE) H 02/25/22 14:25 Discharge Plan Discharge Patient Disposition: Home Clinical Impression: Tracheal mass, Dysphagia Condition: Stable Prescriptions: No Action mupirocin 2 % ointment 1 applic topical BID Qty: 22 1RF Rx Instructions: Apply to affected area until healed prednisone 20 mg tablet 20 mg PO DAILY Qty: 20 0RF carvedilol 3.125 mg tablet See Rx Instructions .ROUTE .COMPLEX Qty: 180 1RF Dose Instruction: Take 1 tablet by mouth twice daily Rx Instructions: Take 1 tablet by mouth twice daily isosorbide mononitrate 30 mg tablet extended release 24 hr See Rx Instructions .ROUTE .COMPLEX Qty: 90 2RF Dose Instruction: Take 1 tablet by mouth once daily Rx Instructions: Take 1 tablet by mouth once daily levothyroxine 88 mcg tablet See Rx Instructions .ROUTE .COMPLEX Qty: 90 2RF Dose Instruction: Take 1 tablet by mouth once daily Rx Instructions: Take 1 tablet by mouth once daily aspirin 81 mg Tablet,Chewable 81 mg PO DAILY Discharge Orders: Discharge ED (Routine); Ordered 02/26/22 Ordered By: Elia Hammond Referrals: Justino Petersen MD [Primary Care Provider] - Discharge Diet: Advance as tolerated Discharge Activity: Resume usual activity Patient Instructions: Lump/Mass, Dysphagia (ED) Coding Level of Care Code ED Peoplesoft Functional Analyst for Chg Fwd Exam Comprehensive Documented by User: Elia Hammond MD 02/26/22 01:21 HPI - General Adult General: Chief complaint: General Medical Stated complaint: Trouble swallowing, unsteady Time Seen by Provider: 02/25/22 17:27 PFSH ED PFSH: Medical History Anxiety Essential hypertension Thyroid cancer Thyroid malignant neoplasm Surgical History History of bronchoscopy History of throat surgery Hx of hernia repair Hx of hysterectomy Family History Other Heart disease Social History Smoking and tobacco status: never smoked Second hand smoke exposure: Yes Alcohol intake: former Lives independently: Yes Household members: family Current occupational status: retired History of recent travel: No Current gender identity: Female Course Vital Signs: Vital signs: Vital Signs Temperature 98.1 F 02/25/22 13:45 Pulse Rate 107 H 02/26/22 01:12 Respiratory Rate 17 02/26/22 01:12 Blood Pressure 155/89 02/26/22 01:12 Pulse Oximetry 93 02/26/22 01:12 Oxygen Delivery Me thod 02/26/22 00:37 MDM - General Adult Medical Decision Making Patient presents here with tracheal mass has been attempted to transfer to [facility]. We had contacted [facility] multiple times there on ER and hospital divert and and unable to give us any timeline on when they have a bed available I spoke to patient multiple times nursing spoke to patient multiple times as well. I informed him that we will have to try to transfer elsewhere as we have no idea when a bed will be available at [facility]. Patient and family are adamant that they will only go to [facility]. At this time they are requesting to be discharged home they do not want to stay here any longer. I informed them that I did not feel comfortable discharging them due to her medical condition. They refused to sign out AMA due to insurance purposes. They do not want to stay here any longer so I will discharge him at this point at her request. She states that she just wants to drive straight to [facility] at this time. I again tried to talk patient into staying here and to attempt transfer layers were to see if EMS has a bed opened up they refused Lab Data : 02/25/22 14:31 02/25/22 14:[address] 02/25/22 17:49 IMPRESSION: 1. Progressive 4.2 x 2.5 x 3.6 cm mass invading the left side of the trachea and anterior wall of the esophagus consistent with history of thyroid carcinoma. 2. New large enhancing 2.5 cm lymph node in the left lower neck lateral fully thyroid consistent with metastatic adenopathy. The left internal jugular vein is compressed between the mass and this enlarged lymph node with occlusion. 3. Multiple metastatic pulmonary nodules, consistent with pulmonary metastases better visualized on prior chest CT. Fleischner protocol does not apply as there is known history of malignancy. Head CT 02/25/22 22:34 IMPRESSION: No intracranial lesion or injury Chest X-Ray 02/26/22 00:06 IMPRESSION: 1. Interval appearance of mild to moderate right basilar atelectasis and/or infiltrate and/or effusion. 2. Stable COPD . 3. Mild cardiomegaly. Laboratory Results WBC 6.8 10^3/uL (4.0-10.0) 02/25/22 14:31 RBC 4.31 10^6/uL (4.1-5.3) 02/25/22 14:31 Hgb 12.0 g/dL (11.5-15.3) 02/25/22 14:31 Hct 39.1 % (37.0-47.0) 02/25/22 14:31 MCV 90.7 fl (81-99) 02/25/22 14:31 MCH 27.8 pg (28.0-34.0) L 02/25/22 14:31 MCHC 30.7 g/dL (30.0-36.0) 02/25/22 14:31 RDW 14.8 % (12.1-15.1) 02/25/22 14:31 Plt Count 272 10^3/cmm (130-400) 02/25/22 14:31 MPV 9.5 fL (7.4-10.4) 02/25/22 14:31 Neut % (Auto) 63.0 % 02/25/22 14:31 Lymph % (Auto) 26.5 % 02/25/22 14:31 [place] % (Auto) 8.1 % 02/25/22 14:31 Eos % (Auto) 1.6 % 02/25/22 14:31 Baso % (Auto) 0.7 % 02/25/22 14:31 Neut # (Auto) 4.28 10^3/uL (1.8-7.7) 02/25/22 14:31 Lymph # (Auto) 1.8 10^3/uL (0.8-4.8) 02/25/22 14:31 [place] # (Auto) 0.6 10^3/uL (0.2-0.9) 02/25/22 14:31 Eos # (Auto) 0.1 10^3/uL (0.0-0.8) 02/25/22 14:31 Baso # (Auto) 0.1 10^3/uL (0.0-0.1) 02/25/22 14:31 Nucleated RBC % (auto) 0 % 02/25/22 14:31 Nucleated RBCs # 0.0 /100WBC 02/25/22 14:31 Sodium 141 mmol/L (136-145) 02/25/22 14:31 Potassium 4.0 mmol/L (3.5-5.1) 02/25/22 14:31 Chloride 102 mmol/L (98-107) 02/25/22 14:31 Carbon Dioxide 30 mmol/L (22-29) H 02/25/22 14:31 Anion Gap 13.0 (5-19) 02/25/22 14:31 BUN 12 mg/dL (8-23) 02/25/22 14:31 Creatinine 0.5 mg/dL (0.5-0.9) 02/25/22 14:31 GFR Calculation Not Reportable 02/25/22 14:31 Glucose 101 mg/dL (65-115) 02/25/22 14:31 Calculated Osmolality 292 mOsm/kg (285-295) 02/25/22 14:31 Calcium 8.9 mg/dL (8.5-10.5) 02/25/22 14:31 Total Bilirubin 0.8 mg/dL (0.15-1.2) 02/25/22 14:31 AST 14 U/L (0-32) 02/25/22 14:31 ALT < 5 U/L (0-33) 02/25/22 14:31 Alkaline Phosphatase 112 U/L (35-105) H 02/25/22 14:31 Total Protein 7.0 g/dL (6.6-8.7) 02/25/22 14:31 Albumin 3.6 g/dL (3.5-5.2) 02/25/22 14:31 Globulin 3.4 g/dL (1.3-4.6) 02/25/22 14:31 Urine Color Yellow (Yellow) 02/25/22 14:25 Urine Appearance Cloudy (CLEAR) 02/25/22 14:25 Urine pH 6 (5-7) 02/25/22 14:25 Ur Specific [place] 1.015 (1.005-1.030) 02/25/22 14:25 Urine Protein Neg (Negative) 02/25/22 14:25 Urine Glucose (UA) Norm (Normal) 02/25/22 14:25 Urine Ketones 1+ (Negative) H 02/25/22 14:25 Urine Blood 2+ (Negative) H 02/25/22 14:25 Urine Nitrate Negative (Negative) 02/25/22 14:25 Urine Bilirubin Neg (Negative) 02/25/22 14:25 Urine Urobilinogen 4 mg/dL (Negative) H 02/25/22 14:25 Ur Leukocyte Esterase 2+ (Negative) H 02/25/22 14:25 Urine RBC 0-4 /hpf (0-2) H 02/25/22 14:25 Urine WBC 25-40 /hpf (0-5) H 02/25/22 14:25 Ur Squamous Epith Cells 5-10 /hpf (0-5) H 02/25/22 14:25 Amorphous Sediment Not Reportable 02/25/22 14:25 Urine Bacteria 4+ /hpf (NONE) H 02/25/22 14:25 Discharge Plan Discharge Patient Disposition: Home Clinical Impression: Tracheal mass, Dysphagia Condition: Stable Prescriptions: No Action mupirocin 2 % ointment 1 applic topical BID Qty: 22 1RF Rx Instructions: Apply to affected area until healed prednisone 20 mg tablet 20 mg PO DAILY Qty: 20 0RF carvedilol 3.125 mg tablet See Rx Instructions .ROUTE .COMPLEX Qty: 180 1RF Dose Instruction: Take 1 tablet by mouth twice daily Rx Instructions: Take 1 tablet by mouth twice daily isosorbide mononitrate 30 mg tablet extended release 24 hr See Rx Instructions .ROUTE .COMPLEX Qty: 90 2RF Dose Instruction: Take 1 tablet by mouth once daily Rx Instructions: Take 1 tablet by mouth once daily levothyroxine 88 mcg tablet See Rx Instructions .ROUTE .COMPLEX Qty: 90 2RF Dose Instruction: Take 1 tablet by mouth once daily Rx Instructions: Take 1 tablet by mouth once daily aspirin 81 mg Tablet,Chewable 81 mg PO DAILY Discharge Orders: Discharge ED (Routine); Ordered 02/26/22 Ordered By: Elia Hammond Referrals: Justino Petersen MD [Primary Care Provider] - Discharge Diet: Advance as tolerated Discharge Activity: Resume usual activity Patient Instructions: Lump/Mass, Dysphagia (ED) Coding Level of Care Code ED Peoplesoft Functional Analyst for Chg Fwd Exam Comprehensive
--- NOTE | 2022-02-25 17:49 | CTR_ITS ---
PROCEDURE INFORMATION: Exam: CT Neck With Contrast Exam date and time: 02/25/2022 6:45 PM Age: 81 years old Clinical indication: Condition or disease; Thyroid disorder and other: Thyroid cancer; Prior surgery; Surgery type: Thyroidectomy; Additional info: Throat cancer TECHNIQUE: Imaging protocol: Computed tomography of the neck with contrast. Radiation optimization: All CT scans at this facility use at least one of these dose optimization techniques: automated exposure control; mA and/or kV adjustment per patient size (includes targeted exams where dose is matched to clinical indication); or iterative reconstruction. Contrast material: OMNI 350; Contrast volume: 65 ml; Contrast route: INTRAVENOUS (IV); COMPARISON: CT neck w con* [id number] 01/27/2019 12:14 PM,, chest CT without contrast 06/05/2020 RADIATION DOSE METRICS: Total DLP (mGy-cm): 169.94 FINDINGS: Pharynx: Unremarkable. No significant tonsillar enlargement. Larynx: Unremarkable. Epiglottis is normal. Prevertebral and retropharyngeal spaces: Unremarkable. Salivary glands: Normal. Glands are normal in size. Thyroid: Status post right hemithyroidectomy. There is progression of soft tissue mass to the left of the trachea and interposed between the trachea and the esophagus. Current dimensions are 4.2 x 2.5 cm. Craniocaudad dimension is 3.6 cm. These dimensions are increased from 3.2 x 1.9 x 2.3 cm. On previous scan. The mass thickens and invades the left lateral wall of the trachea and the anterior wall of the esophagus. This has increased from previous scan. The trachea is narrowed by 40%. Lymph nodes: In the left lower neck there is a 2.5 x 2.3 x 2.5 cm lymph node not present on prior scans. The left internal jugular vein is compressed and occluded as it courses between the mass and the enlarged lymph node. Trachea: See Thyroid finding. Lungs: In the visible portion of the upper lobes there are multiple nodules present measuring up to 6 mm. There were many more nodules present on prior chest CT. Pleural spaces: Small right pleural effusion. Bones/joints: Unremarkable. No acute fracture. Soft tissues: Unremarkable. No significant soft tissue swelling. CT/CT neck w con* [id number] IMPRESSION: 1. Progressive 4.2 x 2.5 x 3.6 cm mass invading the left side of the trachea and anterior wall of the esophagus consistent with history of thyroid carcinoma. 2. New large enhancing 2.5 cm lymph node in the left lower neck lateral fully thyroid consistent with metastatic adenopathy. The left internal jugular vein is compressed between the mass and this enlarged lymph node with occlusion. 3. Multiple metastatic pulmonary nodules, consistent with pulmonary metastases better visualized on prior chest CT. Fleischner protocol does not apply as there is known history of malignancy.
[2022-02-25 18:06] VITALS: BP 178/97; PULSE 94; RESP 18; O2SAT 94
[2022-02-25] MEDS: iohexol 350 mg/mL 100 mL Btl IV (18:46)
[2022-02-25 19:56] VITALS: BP 169/93; PULSE 87; RESP 17; O2SAT 96
[2022-02-25 20:53] VITALS: BP 173/95; PULSE 90; RESP 18; O2SAT 95
--- NOTE | 2022-02-25 22:34 | CTR_ITS ---
PROCEDURE INFORMATION: Exam: CT Head Without Contrast Exam date and time: 02/25/2022 10:39 PM Age: 81 years old Clinical indication: Other: Unsteady gait TECHNIQUE: Imaging protocol: Computed tomography of the head without contrast. Radiation optimization: All CT scans at this facility use at least one of these dose optimization techniques: automated exposure control; mA and/or kV adjustment per patient size (includes targeted exams where dose is matched to clinical indication); or iterative reconstruction. COMPARISON: MR head wo/w con [id number] 02/12/2016 12:57 PM RADIATION DOSE METRICS: Total DLP (mGy-cm): 957.29 FINDINGS: Brain: There is age-related volume loss. There is no infarct. There is no hemorrhage or extra-axial collection. There is no mass. Cerebral ventricles: No ventriculomegaly. Paranasal sinuses: Visualized sinuses are unremarkable. No fluid levels. Mastoid air cells: Visualized mastoid air cells are well aerated. Bones/joints: Unremarkable. No acute fracture. Soft tissues: Unremarkable. CT/CT head wo con* [id number] IMPRESSION: No intracranial lesion or injury
--- NOTE | 2022-02-26 00:06 | XRR_ITS ---
PROCEDURE INFORMATION: Exam: XR Chest Exam date and time: 02/26/2022 12:14 AM Age: 81 years old Clinical indication: Shortness of breath; Additional info: SOB TECHNIQUE: Imaging protocol: Radiologic exam of the chest. Views: 1 view. COMPARISON: CT chest con [id number] 06/05/2020 9:37 AM FINDINGS: Lungs: Interval appearance of mild to moderate right basilar atelectasis and/or infiltrate and/or effusion. Stable COPD . Pleural spaces: Unremarkable. No pleural effusion. No pneumothorax. Heart/Mediastinum: Mild cardiomegaly. Bones/joints: Unremarkable. XR/XR chest 1V portable [id number] IMPRESSION: 1. Interval appearance of mild to moderate right basilar atelectasis and/or infiltrate and/or effusion. 2. Stable COPD . 3. Mild cardiomegaly.
--- NOTE | 2022-02-26 00:16 | ECG_ITS ---
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 Measurements Intervals [place] Rate: 93 P: -78 MI: 124 QRS: 24 QRSD: 87 T: 55 QT: 380 QTc: 473 Interpretive Statements JUNCTIONAL RHYTHM MINIMAL ST DEPRESSION [0.025+ mV ST DEPRESSION] ABNORMAL RHYTHM ECG Compared to ECG 07/10/2019 11:20:10 Junctional rhythm now present ST (T wave) deviation now present Sinus rhythm no longer present Electronically Signed On 02-26-2022 0:17:29 CDT by Chuy Quintanilla M.D. [id number]
[2022-02-26] MEDS: hyDRALAzine 20 mg/mL INJ 1 mL 10 MG IVP (00:34)
[2022-02-26 00:37] VITALS: BP 180/86; PULSE 92; RESP 16; O2SAT 92
--- NOTE | 2022-02-26 01:03 | PC.NURSE ---
multiple attempts to keep patient for transfer to higher level facility and no bed at [facility]. patient adament about being transferred to [facility]. Family asking for patient to be discharged home with follow up with [facility]. upon discharge patient instructed of need to be transferred to higher level facility but states i just want to go to [facility]. can you discharge us home and well call in the morning. patient instructed if any worsening breathing/swallowing difficulites to return to ER or other medical facility. patient nods head in understanding. family at bedside with phone live screening vitlas. patient instructed of blood pressure 155/89 and heart rate 107. patient instructed of need to be monitored but patinet and family adament on being discharge. patient in no obivous distress. Patient showing no sign/concerns for difficulty swallowing/unsteady gait upon discharge. IV removed intact with no complications. Patinet ambulatory to wheelchair and taken to families vehicle.
[2022-02-26 01:12] VITALS: BP 155/89; PULSE 107; RESP 17; O2SAT 93
== END 2022-02-26 01:14 | disposition home or self-care (01) ==
PROVIDERS: Family Medicine; Emergency Provider Emergency Medicine; PCP Family Medicine
DX: R13.10 Dysphagia, unspecified (principal); J39.8 Other specified diseases of upper respiratory tract; Z79.82 Long term (current) use of aspirin; Z77.22 Contact with and (suspected) exposure to environmental tobacco smoke (acute) (chronic); I10 Essential (primary) hypertension; Z85.850 Personal history of malignant neoplasm of thyroid
CPT/HCPCS: 36415; 70450; 70491; 71045; 80053; 81001; 85025; 87077; 87086; 87186; 93005; 96374; 99285; J0360; Q9967

== ENCOUNTER 2022-05-26 22:22 | Emergency (ER) | payer MEDICARE, SELFPAY ==
[2022-05-26 22:35] VITALS: BP 159/91; PULSE 114; RESP 28; TEMP 37; O2SAT 84; BMI 20.5
--- NOTE | 2022-05-26 22:59 | XRR_ITS ---
PROCEDURE INFORMATION: Exam: XR Chest Exam date and time: 05/26/2022 11:45 PM Age: 82 years old Clinical indication: Dyspnea; Additional info: SOB TECHNIQUE: Imaging protocol: Radiologic exam of the chest. Views: 1 view. COMPARISON: CR (CHEST, ) 02/26/2022 12:14 AM FINDINGS: Lungs: There is a background emphysema and mild pulmonary fibrosis. There are numerous pulmonary nodularities again seen within the hemithoraces bilaterally, most prominently seen in the lower hemithoraces. This finding correlates with CT imaging dated 06/05/2020. There are some hazy opacities present in the right lower hemithorax and some increased linear opacities present in the left lung base, findings that could represent mild bilateral basilar pneumonitis. Pleural spaces: Unremarkable. No pleural effusion. No pneumothorax. Heart/Mediastinum: Unremarkable. No cardiomegaly. Bones/joints: Unremarkable. XR/XR chest 1V portable [id number] IMPRESSION: 1. Numerous pulmonary nodularities seen in the hemithoraces bilaterally, finding that correlates with CT imaging dated 06/05/2020. 2. Background of emphysema and mild pulmonary fibrosis. 3. Hazy opacities are seen in the right lower hemithorax and some increased linear opacities are seen in the left lung base , findings that could represent superimposed bilateral basilar pneumonitis.
[2022-05-26 23:35] LABS: Basophils # 0.1 10^3/uL (0.0-0.1); Basophils % 0.5 %; Eosinophils # 0.1 10^3/uL (0.0-0.8); Eosinophils % 0.5 %; Hematocrit 37.9 % (37.0-47.0); Hemoglobin 11.9 g/dL (11.5-15.3); Lymphocytes # 1.9 10^3/uL (0.8-4.8); Lymphocytes % 20.4 %; Mean Corpuscular HGB Conc 31.4 g/dL (30.0-36.0); Mean Corpuscular Hemoglobin 27.2 pg (28.0-34.0); Mean Corpuscular Volume 86.7 fl (81-99); Mean Platelet Volume 9.9 fL (7.4-10.4); Monocytes # 0.7 10^3/uL (0.2-0.9); Monocytes % 7.1 %; Neutrophils # 6.68 10^3/uL (1.8-7.7); Nucleated Red Blood Cells % 0 %; Platelet Count 301 10^3/cmm (130-400); Red Blood Count 4.37 10^6/uL (4.1-5.3); Red Cell Distribution Width 15.8 % (12.1-15.1); White Blood Count 9.4 10^3/uL (4.0-10.0)
--- NOTE | 2022-05-26 23:38 | ECG_ITS ---
[facility] Test Date: 2022-05-26 Pat Name: Magnolia Darling Department: Room: Gender: Female [employer] Racker: : 1940 Requested By: Brendan Mcknight Order Number: [id number] Fer MD: Yenni Fulton M.D. Measurements Intervals [place] Rate: 98 P: 269 SC: 104 QRS: 90 QRSD: 136 T: 42 QT: 377 QTc: 483 Interpretive Statements JUNCTIONAL RHYTHM INTRAVENTRICULAR CONDUCTION DELAY [130+ ms QRS DURATION] SEPTAL MYOCARDIAL INFARCTION , OF INDETERMINATE AGE [40+ ms Q WAVE IN V1/V2] Compared to ECG 02/26/2022 00:16:10 Intraventricular conduction delay now present Myocardial infarct finding now present ST (T wave) deviation no longer present Electronically Signed On 05-27-2022 5:49:18 LABOR UNION BUSINESS REPRESENTATIVE by Yenni Fulton M.D. [id number]
[2022-05-26] MEDS: ipratropium-albuterol 3 mL Neb INHALATION (23:49)
[2022-05-26 23:51] VITALS: PULSE 98; RESP 22; O2SAT 96
[2022-05-26 23:59] LABS: Influenza A by IFA negative (Negative); Influenza B by IFA negative (Negative); SARS Covid-2 Antigen negative (Negative)
[2022-05-27 00:08] LABS: Alanine Aminotransferase 45 U/L (0-33); Albumin Level 2.8 g/dL (3.5-5.2); Alkaline Phosphatase 381 U/L (35-105); Anion Gap 12.1 (5-19); Aspartate Amino Transferase 21 U/L (0-32); Blood Urea Nitrogen 14 mg/dL (8-23); Carbon Dioxide 28 mmol/L (22-29); Chloride 99 mmol/L (98-107); Creatinine Clr Calc Pharmacy 45.1146; Globulin 3.6 g/dL (1.3-4.6); Glucose 104 mg/dL (65-115); NT Pro B Type Natriuretic Pept 1704 pg/mL (0-450); Osmolality Calculated 283 mOsm/kg (285-295); Potassium 3.1 mmol/L (3.5-5.1); Sodium 136 mmol/L (136-145); Total Bilirubin 1.4 mg/dL (0.15-1.2); Total Protein 6.4 g/dL (6.6-8.7)
[2022-05-27] MEDS: levofloxacin-dextrose 5 % 750 MG/150 ML PREMIX 100 MG IV (01:00)
--- NOTE | 2022-05-27 01:46 | PC.NURSE ---
patient taken off oxygen and walked around bed . patient with decreased spo2 to 88% . patient helped back into bed and placed back on oxygen @ 3 L NC. patient in no obivous distress. provider notified of failed room air test
[2022-05-27 02:13] VITALS: BP 116/65; PULSE 94; RESP 21; O2SAT 96
[2022-05-27 03:32] VITALS: BP 141/79; PULSE 84; RESP 17; O2SAT 97
--- NOTE | 2022-05-27 15:25 | ED_ITS ---
HPI - SOB/Dyspnea General: Chief Complaint: Shortness of Breath/Dyspnea Stated Complaint: SOB, weakness Time Seen by Provider: 05/26/22 22:32 Source: patient and family History of Present Illness: HPI Narrative: 71 yo female with a history of thyroid malignancy. she presents with SOB, fever at home with some generalized weakness. she has been coughing with yellow sputum production. Her pulseox was 85% in triage on arrival. She says we've all been sick when asked if she has been in contact with any family memebers with similar symptoms MD elicited complaint: shortness of breath and cough Onset (ago): day(s) Timing: constant and progressively worsening Exacerbating factors: lying flat and exertion Relieving factors: oxygen Known history of: other Associated symptoms: Reports chest congestion, cough, dizziness (mild) and extremity pain; Deny abdominal pain, chest pain, fever(s) or vomiting Treatment prior to arrival: none Related Data: Home oxygen amount: none Review of Systems Const: Denies: fever(s) or body aches ENMT: Reports: nasal discharge; Denies: throat pain Card: Denies: chest pain Resp: Reports: dyspnea, productive cough and chest congestion GI: Denies: abdominal pain or vomiting Musc: Reports: extremity pain Skin/Breast: Denies: rash Neuro: Reports: dizziness (mild); Denies: headache(s) PFSH ED PFSH: Medical History Anxiety Essential hypertension Thyroid cancer Thyroid malignant neoplasm Surgical History History of bronchoscopy History of throat surgery Hx of hernia repair Hx of hysterectomy Family History Other Heart disease Social History Smoking and tobacco status: never smoked Second hand smoke exposure: Yes Alcohol intake: former Lives independently: Yes Household members: family Current occupational status: retired History of recent travel: No Current gender identity: Female Physical Exam Const: GENERAL APPEARANCE: comfortable and frail appearing HENMT: COMMON NORMALS: normocephalic, atraumatic and Normal external nose present HEAD & SCALP: normocephalic and atraumatic FACE & SINUS: normal facial exam NOSE: Normal external nose present THROAT: posterior oropharynx normal Eye: COMMON NORMALS: Equal, round and reactive pupils present and EOMs intact bilaterally PUPIL: Yes Equal, round and reactive pupils present Neck/C-Spine: COMMON NORMALS: full ROM and no meningeal signs Resp: COMMON NORMALS: normal respiratory effort, No use of accessory muscles and clear to auscultation bilaterally AUSCULTATION: clear to auscultation bilaterally Cardio: COMMON NORMALS: regular rate and regular rhythm RATE: regular rate RHYTHM: regular rhythm Extremity: GENERAL: No edema Neuro: DOMINIC COMA SCALE: document GCS findings Dominic coma scale eye opening: Spontaneous Dominic coma scale verbal response: Orientated [place] coma scale motor response: Obey commands Dominic coma scale total score: 15 MENINGEAL SIGNS: Yes no meningeal signs MOTOR EXAM: Normal motor muscle tone present throughout Psych: COMMON NORMALS: mental status grossly normal Course Vital Signs: Vital signs: Vital Signs Temperature 98.6 F 05/26/22 22:35 Pulse Rate 84 05/27/22 03:32 Respiratory Rate 17 05/27/22 03:32 Blood Pressure 141/79 05/27/22 03:32 Pulse Oximetry 97 05/27/22 03:32 Oxygen Delivery Me thod 05/27/22 02:13 Oxygen Flow Rate 3 05/27/22 02:13 MDM - SOB/Dyspnea Medical Decision Making Saturations improved on 2-3L NC with decreased tachypnea, particularly after duoneb treatement. she is given solu-medrol as well. Xrays shows R>L basilar infiltrates by my read but is read as negative. fever resolved here. No leukocytosis or continued tachycardia. Swabs for covid and flu are negative. She was given the option of admission versus going home on O2 and neb treatments with abx. she and family chose home. I spoke with family member who is a nurse and states she can help with the above. Medrol froy for wheeze, abx, and duoneb treatments at home. strict return precautions given. Home health here to set up O2 and neb machines. Lab Data 05/26/22 23:22 05/26/22 23:22 Labs/Radiology: Radiology Impressions Chest X-Ray 05/26/22 22:59 IMPRESSION: 1. Numerous pulmonary nodularities seen in the hemithoraces bilaterally, finding that correlates with CT imaging dated 06/05/2020. 2. Background of emphysema and mild pulmonary fibrosis. 3. Hazy opacities are seen in the right lower hemithorax and some increased linear opacities are seen in the left lung base , findings that could represent superimposed bilateral basilar pneumonitis. Laboratory Results WBC 9.4 10^3/uL (4.0-10.0) 05/26/22 23:22 RBC 4.37 10^6/uL (4.1-5.3) 05/26/22 23:22 Hgb 11.9 g/dL (11.5-15.3) 05/26/22 23:22 Hct 37.9 % (37.0-47.0) 05/26/22 23: MCV 86.7 fl (81-99) 05/26/22 23: MCH 27.2 pg (28.0-34.0) L 05/26/22 23: MCHC 31.4 g/dL (30.0-36.0) 05/26/22 23: RDW 15.8 % (12.1-15.1) H 05/26/22 23:22 Plt Count 301 10^3/cmm (130-400) 05/26/22 23:22 MPV 9.9 fL (7.4-10.4) 05/26/22 23:22 Neut % (Auto) 71.0 % 05/26/22 23: Lymph % (Auto) 20.4 % 05/26/22 23:22 [place] % (Auto) 7.1 % 05/26/22 23: Eos % (Auto) 0.5 % 05/26/22 23: Baso % (Auto) 0.5 % 05/26/22 23:22 Neut # (Auto) 6.68 10^3/uL (1.8-7.7) 05/26/22 23: Lymph # (Auto) 1.9 10^3/uL (0.8-4.8) 05/26/22 23:22 [place] # (Auto) 0.7 10^3/uL (0.2-0.9) 05/26/22 23:22 Eos # (Auto) 0.1 10^3/uL (0.0-0.8) 05/26/22 23:22 Baso # (Auto) 0.1 10^3/uL (0.0-0.1) 05/26/22 23:22 Nucleated RBC % (auto) 0 % 05/26/22 23:22 Nucleated RBCs # 0.0 /100WBC 05/26/22 23:22 Sodium 136 mmol/L (136-145) 05/26/22 23:22 Potassium 3.1 mmol/L (3.5-5.1) L 05/26/22 23:22 Chloride 99 mmol/L (98-107) 05/26/22 23:22 Carbon Dioxide 28 mmol/L (22-29) 05/26/22 23:22 Anion Gap 12.1 (5-19) 05/26/22 23:22 BUN 14 mg/dL (8-23) 05/26/22 23:22 Creatinine 0.5 mg/dL (0.5-0.9) 05/26/22 23:22 GFR Calculation Not Reportable 05/26/22 23:22 Glucose 104 mg/dL (65-115) 05/26/22 23:22 Calculated Osmolality 283 mOsm/kg (285-295) L 05/26/22 23:22 Lactic Acid 1.0 mmol/L (0.5-2.2) 05/26/22 23:22 Calcium 8.0 mg/dL (8.5-10.5) L 05/26/22 23:22 Total Bilirubin 1.4 mg/dL (0.15-1.2) H 05/26/22 23:22 AST 21 U/L (0-32) 05/26/22 23:22 ALT 45 U/L (0-33) H 05/26/22 23:22 Alkaline Phosphatase 381 U/L (35-105) H 05/26/22 23:22 NT-Pro-B Natriuret Pep 1704 pg/mL (0-450) H 05/26/22 23:22 Total Protein 6.4 g/dL (6.6-8.7) L 05/26/22 23:22 Albumin 2.8 g/dL (3.5-5.2) L 05/26/22 23:22 Globulin 3.6 g/dL (1.3-4.6) 05/26/22 23:22 Influenza Type A Ag negative (Negative) 05/26/22 23:30 Influenza Type B Ag negative (Negative) 05/26/22 23:30 SARS-CoV-2 Ag (Rapid) negative (Negative) 05/26/22 23:30 Discharge Plan Discharge Patient Disposition: Home Clinical Impression: Pneumonia Condition: Stable Prescriptions: New levofloxacin 500 mg tablet 500 mg PO DAILY 7 Days Qty: 7 0RF Medrol (Froy) 4 mg tablets,dose pack See Rx Instructions .ROUTE .COMPLEX Qty: 21 0RF Rx Instructions: orally per package directions ipratropium-albuterol 0.5 mg-3 mg(2.5 mg base)/3 mL solution for nebulization 3 ml inhalation Q4H PRN (Reason: shortness of breath or wheezing) Qty: 180 0RF Rx Instructions: until breathing returns to target peak flow/parameters (DME) nebulizer and compressor Device See Rx Instructions .ROUTE Qty: 1 0RF Rx Instructions: As directed No Action mupirocin 2 % ointment 1 applic topical BID Qty: 22 2RF Rx Instructions: Apply to affected area until healed isosorbide mononitrate 30 mg tablet extended release 24 hr See Rx Instructions .ROUTE .COMPLEX Qty: 90 2RF Dose Instruction: Take 1 tablet by mouth once daily Rx Instructions: Take 1 tablet by mouth once daily levothyroxine 88 mcg tablet See Rx Instructions .ROUTE .COMPLEX Qty: 90 2RF Dose Instruction: Take 1 tablet by mouth once daily Rx Instructions: Take 1 tablet by mouth once daily carvedilol 3.125 mg tablet See Rx Instructions .ROUTE .COMPLEX Qty: 180 3RF Dose Instruction: Take 1 tablet by mouth twice daily Rx Instructions: Take 1 tablet by mouth twice daily prednisone 20 mg tablet 20 mg PO DAILY Qty: 30 0RF Rx Instructions: 3 tabs day 1 and 2 then decrease by 1/2 tab every other day: 3,3,2 1/2, 2 1/2, 2.... aspirin 81 mg Tablet,Chewable 81 mg PO DAILY Discharge Orders: Discharge ED (Routine); Ordered 05/27/22 Ordered By: Brendan Arnold Other Ambulatory Orders: DME: Oxygen (ONCE) Location: None Selected Ordered By: Brendan Arnold Referrals: Justino Petersen MD [Primary Care Provider] - 4-7 days Patient Instructions: Pneumonia (ED) Activity Restrictions/Additional Instructions: Return for worsening shortness of breath despite treatment, fever despite 2-3 doses of antibiotics, worsening mental status, weakness, any other concerning symptoms. Coding Level of Care Code ED Information Security Director for Deepa Holden
== END 2022-05-27 03:36 | disposition home or self-care (01) ==
PROVIDERS: Emergency Provider Emergency Medicine; PCP Family Medicine
DX: J18.9 Pneumonia, unspecified organism (principal); Z79.82 Long term (current) use of aspirin; Z20.822 Contact with and (suspected) exposure to COVID-19; I10 Essential (primary) hypertension; Z85.850 Personal history of malignant neoplasm of thyroid; Z77.22 Contact with and (suspected) exposure to environmental tobacco smoke (acute) (chronic)
CPT/HCPCS: 71045; 80053; 83605; 83880; 85025; 87040; 87426; 87804; 93005; 94640; 96365; 96366; 96375; 99285; J1956; J2930

== ENCOUNTER 2022-08-06 08:53 | Outpatient (CLI) | payer MEDICARE, SELFPAY ==
--- NOTE | 2022-08-06 09:30 | CT_ITS ---
WS: [id number] CT NECK TECHNIQUE: Noncontrast CT of the neck with coronal and sagittal reformatted images. CLINICAL INFORMATION: C73 - Malignant neoplasm of thyroid gland COMPARISON: CT neck February 25, 2022 DLP: 143.[address] scans at [facility] use at least one of these dose optimization techniques: automated e xposure control; mA and/or kV adjustment per patient size (includes targeted exams where dose is matc hed to clinical indication); or iterative reconstruction. FINDINGS: Exam is somewhat limited without IV contrast. Mastoid air cells are well aerated. Paranasal sinuses are well aerated. Normal posterior nasopharynx. Normal parapharyngeal fat. Carotid bulb calc ification. Again seen is the thyroid mass invading trachea and anterior wall of the esophagus compatible with hi story of thyroid carcinoma. Similar-appearing masslike lymph node in the LEFT lower neck today measur ing 2.7 cm slightly progressed. Masslike invasion of the thyroid appears slightly larger today measur ing 4.8 x 2.5 x 3.5 cm AP by transverse by craniocaudal. Progressed enlarged lymph nodes lower neck a t the thoracic inlet. Partially visualized RIGHT pleural effusion. Multiple pulmonary nodules partially visualized in the l graciela apices. Largest in the LEFT upper lobe medially measuring 10 mm suspicious for metastatic disease . See chest CT report for further detail. CT/CT neck wo con [id number] IMPRESSION: Exam is limited without IV contrast. 1. Slightly progressed mass involving the LEFT side of the trachea and invadin g the esophagus compatible with history of thyroid carcinoma appears slightly p rogressed. 2. Mass like lymph node in the LEFT lower neck measuring 2.7 cm is slightly pr ogressed. 3. Multiple metastatic nodules in the upper lobes partially visualized appear progressed. See CT chest for further detail. 4. Progressed enlarged lymph nodes lower neck at the thoracic inlet.
--- NOTE | 2022-08-06 10:00 | CT_ITS ---
WS: [id number] CT CHEST, ABDOMEN, AND PELVIS TECHNIQUE: Noncontrast CT of the chest, abdomen, and pelvis with coronal and sagittal reformatted charles ges. CLINICAL INFORMATION: C73 - Malignant neoplasm of thyroid gland COMPARISON: CT chest June 05, 2020 DLP: 383.[address] scans at [facility] use at least one of these dose optimization techniques: automated e xposure control; mA and/or kV adjustment per patient size (includes targeted exams where dose is matc hed to clinical indication); or iterative reconstruction. CT CHEST: Diffuse bilateral pulmonary metastasis appear progressed in number compared to the prior examination. Moderate RIGHT pleural effusion is new from previous. Soft tissue nodule deep to the spinous scapula measuring 1.5 CCM. Largest parenchymal nodules measure up to 2.1 CCM. Aortic calcification. Coronary calcification. Small pericardial effusion. Hilar lymphadenopathy. Prominent mediastinal lymph nodes. Invasive thyroid carcinoma invades the trachea and esophagus described on the neck CT. No axillary l ymphadenopathy. CT ABDOMEN AND PELVIS: Noncontrast liver is normal. Metastatic nodules at the cardiophrenic angle with lymphadenopathy progr essed compared to previous. Adrenal glands are normal. Splenic artery calcification. Large gallbladde r calculus measuring 1.7 CM. No hydronephrosis in either kidney. Small esophageal hiatal hernia. No h ydronephrosis in either kidney. No periaortic lymphadenopathy. No pelvic lymphadenopathy. Sigmoid div erticulosis. No evidence of high-grade small or large bowel obstruction. Moderate spondylitic changes lumbar spine. CT/[place] [id number] IMPRESSION: 1. Progression in the number and size of pulmonary metastasis compared to prev ious. 2. Small RIGHT pleural effusion with compressive atelectasis RIGHT lower lobe. 3. 1.5 cm soft tissue mass along the lateral spinous scapula. 4. Cardiomegaly with small pericardial effusion. 5. Enlarged metastatic soft tissue nodules and lymphadenopathy in the cardioph renic angle progressed compared to previous. 6. Cholelithiasis. 7. Small esophageal hiatal hernia. 8. Sigmoid diverticulosis.
== END 2022-08-06 08:54 | disposition home or self-care (01) ==
PROVIDERS: PCP Family Medicine; Visit Provider Family Medicine
DX: C73 Malignant neoplasm of thyroid gland (principal); I51.7 Cardiomegaly; J90 Pleural effusion, not elsewhere classified; K80.20 Calculus of gallbladder without cholecystitis without obstruction; K44.9 Diaphragmatic hernia without obstruction or gangrene; K57.30 Diverticulosis of large intestine without perforation or abscess without bleeding; I31.39 Other pericardial effusion (noninflammatory); J98.11 Atelectasis
CPT/HCPCS: 70490; 71250; 74176

== ENCOUNTER 2022-10-02 16:53 | Outpatient (CLI) | payer MEDICARE, SELFPAY ==
--- NOTE | 2022-10-02 16:58 | XRR_ITS ---
PROCEDURE INFORMATION: Exam: XR Chest Exam date and time: 10/02/2022 5:06 PM Age: 82 years old Clinical indication: Condition or disease; Lung condition and disease; Cancer of the lung and other: Thyroid CA; Right; Unspecified; Additional info: C73 - malignant neoplasm of thyroid gland TECHNIQUE: Imaging protocol: Radiologic exam of the chest. Views: 2 views. COMPARISON: [place] [id number] 08/06/2022 9:48 AM FINDINGS: Lungs: Multiple stable nodules in the left lung. Collapse of the right middle and lower lobes and partial collapse of the right upper lobe. Pleural spaces: Increased large right pleural effusion. No pneumothorax. Apical pleural scarring and calcifications. Heart/Mediastinum: Unremarkable. No cardiomegaly. Bones/joints: Unremarkable. XR/XR chest 2V* [id number] IMPRESSION: 1. Increased large right pleural effusion with partial collapse of the right lung. 2. Stable left pulmonary metastatic disease.
== END 2022-10-02 16:54 | disposition home or self-care (01) ==
LOC: RAD 16:57
PROVIDERS: PCP Family Medicine; Visit Provider Family Medicine
DX: C73 Malignant neoplasm of thyroid gland (principal); J43.9 Emphysema, unspecified; J90 Pleural effusion, not elsewhere classified; J98.19 Other pulmonary collapse; C78.02 Secondary malignant neoplasm of left lung
CPT/HCPCS: 71046

== ENCOUNTER → 2022-10-04 12:12 | Outpatient (BNVA) | payer MEDICARE, SELFPAY | PROVIDERS: PCP Family Medicine; Visit Provider Internal Medicine Pulmonary Disease | DX: J90 Pleural effusion, not elsewhere classified (principal); C73 Malignant neoplasm of thyroid gland | CPT/HCPCS: 99214 ==

== ENCOUNTER 2022-10-08 08:39 | Day surgery (SDC) | payer MEDICARE, SELFPAY ==
[2022-10-04 09:41] VITALS: BMI 18.7
[2022-10-08 08:54] VITALS: BP 117/72; PULSE 88; RESP 16; TEMP 36.5; O2SAT 92
--- NOTE | 2022-10-08 09:49 | XRR_ITS ---
PROCEDURE INFORMATION: Exam: XR Chest Exam date and time: 10/08/2022 9:10 AM Age: 82 years old Clinical indication: Device placement; Other: Post thoracentesis TECHNIQUE: Imaging protocol: Radiologic exam of the chest. Views: 1 view. COMPARISON: CR XR chest 2V* [id number] 10/02/2022 5:06 PM FINDINGS: Lungs: Emphysematous change, interstitial prominence, asymmetric right basilar airspace disease, and multiple pulmonary nodules. Bronchial calcification. Pleural spaces: Marked interval decrease in size of right pleural effusion in the setting of reported thoracentesis, without significant pneumothorax. Heart/Mediastinum: No cardiomegaly. Bones/joints: Osteopenia, degenerative change, and lumbar scoliosis. XR/XR chest 1V portable [id number] IMPRESSION: 1. Marked interval decrease in size of right pleural effusion in the setting of reported thoracentesis, without significant pneumothorax. 2. Emphysematous change, interstitial prominence, asymmetric right basilar airspace disease, and multiple pulmonary nodules. 3. Additional findings as described above.
--- NOTE | 2022-10-08 10:05 | P.PCN_ITS ---
Outpatient Procedures Thoracentesis Consent signed and on chart: Yes Time Out Performed: Yes Procedure: therapeutic thoracentesis Location: Right Local anesthetic used: lidocaine 1% Bedside ultrasound used: yes, pleural effusion confirmed and location marked Preparation: sterile prep and drape and 10 blade used to make eric in skin Amount of fluid obtained (mL): 2,000 Fluid: bloody and sent to lab for analysis Post Procedure Exam: awake, alert, normal BP, normal HR and normal SpO2 Post-procedure chest x-ray ordered: Yes Estimated blood loss (mL): 5 Patient Tolerated Procedure: well and no complications Procedure Note: Pulmonary & Critical Care Medicine Procedure - Ultrasound guided Thoracentesis Procedure: CPT code 88585 thoracentesis, needle or catheter, aspiration of the pleural space; with imaging guidance Indication: Worsening right pleural effusion. 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 Chest x-ray showed large right pleural effusion. We will proceed with thoracentesis for therapeutic benefits. Technique: The study was performed in an ACR accredited facility. Medication reconciliation form reviewed and any changes related this procedure resolved. Report: The procedure for thoracentesis was explained to the patient including the risks, benefits and possible complications. The patient was given the opportunity to ask questions, wished to proceed, and signed the written informed consent form. Using ultrasound guidance,(50625) a safe route of access was identified into the right pleural space. The site was then prepped and draped using maximal sterile barrier technique. The 1% lidocaine was used for local anesthetic. With sonographic guidance, a 6 Bangladeshi thoracentesis catheter was placed with return of 5 cc hemorrhagic pleural fluid. The catheter was slipped into the pleural cavity and approximately 2 L of sanguinous pleural fluid was removed. The patient tolerated the procedure well without any immediate complications. Impression: 1. Successful ultrasound-guided right thoracentesis with removal of approximately 2 L of sanguinous pleural fluid. ICD-10 code-J90 pleural effusion, not elsewhere classified
[2022-10-08 10:19] LABS: Cyto Order Verification Order Verified
[2022-10-08 10:27] LABS: Body Fluid Polynuclear #Cells 0.063; Body Fluid WBC 531 /uL; Monocytes # Body Fluid 0.468
[2022-10-08 10:36] VITALS: BP 111/64; PULSE 85; RESP 17; TEMP 36.6; O2SAT 93
[2022-10-08 10:44] LABS: Apprearance, Body Fluid CLOUDY; Color, Body Fluid RED
[2022-10-08 11:15] LABS: Body Fluid Specific Gravity 1.015
[2022-10-08 11:16] LABS: Albumin Body Fluid 2.6 g/dL; Amylase Body Fluid 20 U/L; Cholesterol Body Fluid 92 mg/dL (0-200); LDH Body Fluid 149 U/L; Total Protein Pleural Fluid 3.9 g/dL; Triglycerides Body Fluid 25 mg/dL (0-150)
== END 2022-10-08 10:39 | disposition home or self-care (01) ==
LOC: GILAB 08:40
PROVIDERS: PCP Family Medicine; Visit Provider Internal Medicine Pulmonary Disease
PROC: (CPT 32554; principal; 2022-10-08 09:00)
DX: R91.8 Other nonspecific abnormal finding of lung field; J91.0 Malignant pleural effusion; C80.1 Malignant (primary) neoplasm, unspecified
CPT/HCPCS: 32555; 71045; 80503; 82042; 82150; 82465; 82945; 83615; 83986; 84157; 84315; 84478; 87070; 87075; 87205; 88112; 89050

== ENCOUNTER 2022-10-31 07:25 | Outpatient (CLI) | payer MEDICARE, SELFPAY ==
--- NOTE | 2022-10-31 07:45 | USCV_ITS ---
Magnolia Darling Age: 82 Gender: F : 1940 Exam Date: 10/31/2022 07:55 Ordering Phys: Jairon Batista MD Technologist: FAUSTINO [place] [facility] [place]ication: SHORTNESS OF BREATH BP: 161 / 82 HR: 80 Rhythm: Sinus Technical Quality: Adequate MEASUREMENTS (Male / Female) Normal Values 2D ECHO LVOT Diameter 2.0 cm LV Ejection Fraction MOD 2C 71.8 % LV Ejection Fraction 2C AL 76.6 % LA Diameter 2.8 cm LA Width 4.2 cm LA Height 2.9 cm RA Width 2.0 cm RA Height 2.4 cm Aorta at Sinotubular Diameter 1.8 cm IVC Diameter 1.0 cm M-MODE Aortic Annulus Diameter 1.9 cm LA Ao Ratio MM 1.5 MV E Point Septal Separation 0.3 cm DOPPLER AV Peak Velocity 284.0 cm/s LVOT Peak Velocity 81.0 cm/s AV Area Cont Eq vti 0.8 cm squared AV Area Cont Eq pk 0.9 cm squared MV Peak Velocity 169.0 cm/s MV Area PHT 2.8 cm squared Mitral E to A Ratio 0.6 MV E' Velocity 52.5 cm/s Mitral E to MV E' Ratio 16.5 Mitral E to LV E' Lateral Ratio 12.6 Mitral E to LV E' Septal Ratio 24.3 TR Peak Velocity 291.7 cm/s TR Peak Gradient 34.0 mmHg TR Mean Velocity 230.2 cm/s TR Mean Gradient 22.1 mmHg TR Velocity Time Integral 91.1 cm TV Peak E Velocity 54.0 cm/s Right Atrial Pressure 3.0 mmHg Pulmonary Artery Systolic Pressu 37.0 mmHg PV Peak Velocity 141.0 cm/s RV Acceleration Time 0.1 s RV Ejection Time 0.3 s RV AcT/ET 0.2 FINDINGS Left Ventricle Left ventricle is normal in size. LV systolic function is normal with EF of 60 to 65%. No regional wall motion abnormalities are seen. Severe left ventricular hypertrophy. Grade 1 diastolic dysfunction. Right Ventricle Normal in size and function Right Atrium Normal in size Left Atrium Normal in size Mitral Valve Mitral valve is thickened. Mild mitral regurgitation Aortic Valve Aortic valve is thickened and calcified. Aortic valve area 0.84 cm squared with mean gradient across aortic valve of 19 mmHg. This is consistent with moderate to severe aortic stenosis. Tricuspid Valve Mild tricuspid regurgitation. Pulmonary artery systolic pressure is elevated and is 35 to 40 mmHg. This is consistent with mild pulmonary hypertension. Pulmonic Valve Not well visualized.Trace pulmonic regurgitation. Pericardium Small sized pericardial effusion is seen. Aorta Normal in size IVC Appears to be normal CONCLUSIONS LV systolic function is normal with EF of 60 to 65%. Severe left ventricular hypertrophy is seen. Grade 1 diastolic dysfunction. Mild mitral regurgitation. Moderate to severe aortic stenosis. Mild tricuspid regurgitation. Mild pulmonary hypertension. Trace pulmonic regurgitation. Small sized pericardial effusion is seen. Compared to prior echocardiogram from 2015, patient now has moderate to severe aortic stenosis. Kristofer Lincoln MD (Electronically Signed) Final Date: 06 November 2022 09:23 S
== END 2022-10-31 07:26 | disposition home or self-care (01) ==
PROVIDERS: PCP Family Medicine; Visit Provider Internal Medicine Pulmonary Disease
DX: R06.02 Shortness of breath (principal); I08.3 Combined rheumatic disorders of mitral, aortic and tricuspid valves; I27.20 Pulmonary hypertension, unspecified; I31.39 Other pericardial effusion (noninflammatory)
CPT/HCPCS: 93306

== ENCOUNTER 2022-11-06 09:25 | Outpatient (CLI) | payer MEDICARE, SELFPAY ==
--- NOTE | 2022-11-06 09:31 | XRR_ITS ---
PROCEDURE INFORMATION: Exam: XR Chest Exam date and time: 11/06/2022 9:44 AM Age: 82 years old Clinical indication: Shortness of breath; history of thyroid cancer; Additional info: Increased shortness of breath TECHNIQUE: Imaging protocol: Radiologic exam of the chest. Views: 2 views. COMPARISON: CR XR chest 1V portable [id number] 10/08/2022 9:10 AM FINDINGS: Lungs: Numerous metastases throughout the left lung measure up to 1.5 cm. Pleural spaces: Massive right pleural effusion. Nearly complete opacification of the entire right hemithorax. Only the right lung apex partially aerated. Small left pleural effusion. Heart/Mediastinum: Mild midline shift to the left. Vasculature: Aortic calcification. Senescent changes of the aorta and spine. Bones/joints: Diffuse osteopenia. Soft tissues: Unremarkable. XR/XR chest 2V* [id number] IMPRESSION: 1. Massive right pleural effusion. Nearly complete opacification of the entire right hemithorax. Only the right lung apex is still aerated. 2. Mild midline shift to the left. 3. Numerous metastases throughout the left lung measure up to 1.5 cm. COMMENTS: The findings were verbally communicated via telephone conference with Dr. Petersen at 10:22 AM CDT on 11/06/2022. The findings were acknowledged and understood.
== END 2022-11-06 09:26 | disposition home or self-care (01) ==
LOC: RAD 09:27
PROVIDERS: PCP Family Medicine; Visit Provider Family Medicine
DX: C44.42 Squamous cell carcinoma of skin of scalp and neck
CPT/HCPCS: 11626; 17276; 71046; 80053; 85025

== ENCOUNTER 2022-11-07 07:28 | Day surgery (SDC) | payer MEDICARE, SELFPAY ==
[2022-11-06 14:03] VITALS: BMI 17.2
[2022-11-07] VITALS (7 sets, daily range): BP systolic 102–129; BP diastolic 64–74; PULSE 85–104; RESP 16–18; TEMP 36.1–36.6; O2SAT 93–100
--- NOTE | 2022-11-07 07:30 | P.ANESASSM_ITS ---
Pre-Anesthetic Assessment Height/Weight: Height 1.63 m Weight 45.359 kg Temp Pulse Resp BP Pulse Ox O2 Del Method O2 Flow Rate 97.6 F 85 16 116/74 93 Nasal Cannula 3 11/07/22 07:39 11/07/22 07:39 11/07/22 07:39 11/07/22 07:39 11/07/22 07:39 11/07/22 07:44 11/07/22 07:44 Preop Diagnosis: recurrent right pleural effusion Operation Date: 11/07/22 09:00 Proposed Procedures p [place] Pleural Catheter Insertion, [[id number]], [J90](Not Applicable) - Melecio Link MD Familial anesthetic complications: none - patient states she benefically has high pain tolerance Was Beta Nicole taken within 24 hours: Yes Was Clonidine taken within 24 hours: N/A Last intake: Intake Last Liquid Date 11/06/22 Last Liquid Time 22:00 Last Solid Date 11/06/22 Last Solid Time 18:00 Social No alcohol and No tobacco Exam alert, oriented x 3, clear to auscultation bilaterally and regular rate & rhythm dminished b/l and caorse breath sounds Airway Dentition: false Comments: Comments: CT neck 08/22 IMPRESSION: Exam is limited without IV contrast. ? 1.? Slightly progressed mass involving the LEFT side of the trachea and invading the esophagus compatible with history of thyroid carcinoma appears slightly progressed. 2.? Mass like lymph node in the LEFT lower neck measuring 2.7 cm is slightly progressed. 3.? Multiple metastatic nodules in the upper lobes partially visualized appear progressed. See CT chest for further detail. 4.? Progressed enlarged lymph nodes lower neck at the thoracic inlet. ? 11/19 bronchoscope OR note After discussion of risk and benefit and informed consent was obtained.? Monitored anesthesia care was initiated by the anesthesia team after the patient was brought to the OR.? The patient was optimally positioned.? The bronchoscope was advanced through the mouth.? The vocal cords and epiglottis were anesthetized with 1% lidocaine.? The bronchoscope was passed through the vocal cords and the airway was anesthetized with 1% lidocaine again.? Erythematous upper trachea.? The upper trachea appeared somewhat narrowed from the e ndoluminal lesion for which she underwent the debulking procedure.? However, the bronchoscope could be easily passed without any difficulty.? There is no fungating growth.? This mucosal erythema and swelling is present in the initial few centimeter of the trachea.? The melissa was sharp.? The melissa and the right and left mainstem bronchi are sedated with 1% lidocaine.? In a systematic manner then bilateral lung airways were inspected.? All airways appeared patent.? There is no significant erythema, mucus or endobronchial lesion.? The mucosa was very friable and easily bled to touch from the bronchoscope.? Multiple pictures were taken.? The bronchoscope was then slowly withdrawn and the upper trachea was inspected again and the aforementioned findings are confirmed. CV/HEM Hypertension Echo CONCLUSIONS ?LV systolic function is normal with EF of 60 to 65%. ?Severe left ventricular hypertrophy is seen. ?Grade 1 diastolic dysfunction. ?Mild mitral regurgitation. ?Moderate to severe aortic stenosis. ?Mild tricuspid regurgitation. ?Mild pulmonary hypertension. ?Trace pulmonic regurgitation. ?Small sized pericardial effusion is seen. ?Compared to prior echocardiogram from 2016, patient now has ?moderate to severe aortic stenosis. Metabolic Thyroid Disease Anesthetic Plan ASA status: 4 Anesthesia: MAC Risk of > 500 ml blood loss (7ml/kg in children): No Medications/Allergies Home Medications Medication Instructions Recorded Confirmed Last Taken Type aspirin 81 mg chewable tablet 81 mg PO DAILY 07/10/19 11/06/22 11/06/22 History nebulizer and compressor #1 ea 05/27/22 11/06/22 Unknown Rx carvedilol 3.125 mg tablet 3.125 mg PO BID 10/04/22 11/06/22 11/07/22 04:00 History ipratropium bromide 0.02 % See Rx Instructions .Route .COMPLEX 10/04/22 11/06/22 11/07/22 04:00 History solution for inhalation isosorbide mononitrate 30 mg 30 mg PO DAILY 10/04/22 11/06/22 11/07/22 04:00 History tablet,extended release 24 hr levothyroxine 88 mcg tablet 88 mcg PO DAILY 10/04/22 11/06/22 11/07/22 04:00 History prednisone 10 mg tablet 10 mg PO DIRECTED PRN 10/04/22 11/06/22 11/06/22 History Respiratory Distress alprazolam 0.25 mg tablet 0.25 mg PO .q 4 hrs PRN difficulty 10/25/22 11/06/22 11/06/22 Rx breathing #60 tabs indomethacin 25 mg capsule See Rx Instructions .Route 10/31/22 11/06/22 11/06/22 Rx .COMPLEX #60 caps hydrocodone 5 mg-acetaminophen 325 1 tab PO Q8H 4 days #12 tabs 11/07/22 Unknown Rx mg tablet Allergies Allergy/AdvReac Type Severity Reaction Status Date / Time No Known Allergies Allergy Verified 11/06/22 13:57 Current Medications Generic Name Dose Route Start Last Admin Trade Name Tamar PRN Reason Stop Dose Admin Sodium Chloride 1,000 mls @ 30 mls/hr 11/07/22 07:30 11/07/22 07:55 Sodium Chloride 0.9% IV 11/08/22 07:29 30 mls/hr .Q24H BETH Administration PFSH Anesthesia Medical History Anxiety Essential hypertension Thyroid cancer Thyroid malignant neoplasm Surgical History History of bronchoscopy History of throat surgery Hx of hernia repair Hx of hysterectomy Family History Other Heart disease Social History Smoking and tobacco status: never smoked Second hand smoke exposure: Yes Alcohol intake: former Substance/Drug Use: never Lives independently: Yes Household members: family Current occupational status: retired Current occupation: Retired Do you think of yourself as: Straight/Heterosexual Current gender identity: Female Data Anesthesia Cardiac Studies: Echocardiogram 10/31/22
[2022-11-07] MEDS: sodium chloride 0.9% 1,000 ML 30 ML IV (07:55)
--- NOTE | 2022-11-07 08:12 | W.PM.OPSUD ---
Surgery/Procedure H&P Update DATE OF PROCEDURE: November 07, 2022 DATE H&P PERFORMED: 11/06/22 H&P UPDATE INFORMATION: I have reviewed H&P completed within last 30 days, I have examined patient prior to procedure and No changes to prior documentation CHANGES TO PREVIOUS DOCUMENTATION: I carefully discussed with Ms. Darden and her daughter recommendation to consider tunneled pleural drain catheter placement to assist with control of this malignant pleural effusion. Details and risk of the procedure were discussed including increased risk related to her advanced age and metastatic malignancy. She stated understanding and wishes to proceed. Her daughter confirmed. Proper consents have been provided for review and signature. PREOP DIAGNOSIS: recurrent right pleural effusion PRIMARY INDICATION FOR PROCEDURE: Malignant recurrent right pleural effusion PLANNED PROCEDURE: Operation Date: 11/07/22 09:00 Proposed Procedures p [place] Pleural Catheter Insertion, [[id number]], [J90](Not Applicable) - Melecio Link MD
[2022-11-07] MEDS: ceFAZolin 2,000 MG in sodium chloride 0.9% (plus) 50 ML 100 MG IV (09:12)
--- NOTE | 2022-11-07 09:23 | SC_ITS ---
WS: [id number] C-arm fluoroscopy for thoracentesis tube placement, 11/07/2022 Clinical Data: cristina drain Comparison: Two-view chest, 11/06/2022 Findings: Dr. Campbell placed a right chest drainage tube. SC/C-arm FL for Drainage [id number] Impression: Right chest drainage tube placement.
--- NOTE | 2022-11-07 10:09 | XRR_ITS ---
PROCEDURE INFORMATION: Exam: XR Chest Exam date and time: 11/07/2022 9:14 AM Age: 82 years old Clinical indication: Device placement; Other: Right cristina drain placement; Prior surgery; Surgery date: Post-operative (0-2 days); Additional info: Post right cristina drain placement TECHNIQUE: Imaging protocol: Radiologic exam of the chest. Views: 1 view. COMPARISON: CR XR chest 2V* [id number] 11/06/2022 9:44 AM FINDINGS: Lungs: Unremarkable. No consolidation. Pleural spaces: Prior right lung effusion has been drained. Large right lung pneumothorax. This correlates with 65-70% size Heart/Mediastinum: Unremarkable. No cardiomegaly. Bones/joints: Unremarkable. Right side chest tube extends to the subcarinal tissues. XR/XR chest 1V portable [id number] IMPRESSION: 1. Large right lung effusion has been drained 2. Large right lung pneumothorax 3. Right chest tube extends to the mediastinum 4. Otherwise negative examination
--- NOTE | 2022-11-07 10:20 | P.OP_ITS ---
Operative Report Date of procedure: November 07, 2022 Pre-op diagnosis: Preop Diagnosis recurrent malignant right pleural effusion Post-op diagnosis: same Procedure done: Tunneled right pleural drain placement Specimens removed/disposition: 2.8 L serosanguineous pleural fluid Pathology: none sent Surgeon: Melecio Link Anesthesia: MAC and Local Complications: None Condition: stable Disposition: PACU Brief History: Ms. 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 She represented to her primary care provider, Dr. Petersen yesterday with shortness of breath A&D chest x-ray revealed complete opacification of the right hemithorax. Given that this has been previously noted to be a malignant effusion, we recommended tunneled pleural drain catheter placement to allow for long-term management. Details of risk of the procedure were carefully discussed with Ms. Darling and her daughter. Proper consents have been reviewed and signed. Procedure: The entire right chest was sterilely prepped and draped. 1% lidocaine was infiltrated in the posterior axillary line approximately at the seventh interspa ce level. Introducer needle was then placed with return of rafaela-colored pleural fluid. Fluoroscopy was subsequently utilized throughout the procedure for guidewire and dilator advancement and subsequent introducer positioning and Carlos catheter drain placement. Lidocaine was utilized to infiltrate the subcutaneous layer continuing anteriorly. A #11 scalpel blade was used to incise the skin on the guidewire and also anteriorly. Tunneler was utilized to pass the drain anteriorly to posteriorly in the subcutaneous fashion. Dilators were then placed over the guidewire to dilate the tract into the pleural space. Dilator and tear away sheath was then placed. Dilator was removed and pleural drain was placed to the tear-away sheath and the tear-away sheath was then removed. Drain was easily aspirated of large volume of pleural fluid, initially telling 2.8 L. Once completed, the incisions were closed with 3-0 Vicryl suture. A silk suture was utilized to secure the drain to the skin. Patient tolerated procedure well. Sterile dressings were applied. Ms. Darling taken to the PACU where a chest x-ray was performed. It revealed complete drainage of the right hemithorax with reinflation to some degree of the right lung though there is still substantial space noted, which will hopefully will improve with pulmonary toilet and allow for more complete expansion. It is possible the lung may not fully reinflate if there is a peel in place from this chronic effusion. We will set up for home health services to assist with drain management in the early postop period and for frequent drainage along with pulmonary toilet and hopeful reexpansion of the right lung. I did student financial services counselor with her daughter at the completion of the procedure.
--- NOTE | 2022-11-07 15:55 | PC.SOCIAL ---
Social service Note: Received HH order from Dr. Link. Called and spoke to patients daughter and she would like to use [facility]. Referral sent electronically to Michael w/ [facility]. Called Michael and she reviewed referral quickly and reports that they can accept. Choice sheet completed and emailed to Hadley Macias to have added to chart.
== END 2022-11-07 10:58 | disposition home health service (06) ==
PROVIDERS: PCP Family Medicine; Visit Provider Thoracic Surgery (Cardiothoracic Vascular Surgery)
PROC: (CPT 32550; principal; 2022-11-07 09:00)
DX: J91.0 Malignant pleural effusion; I10 Essential (primary) hypertension; E03.9 Hypothyroidism, unspecified; Z79.82 Long term (current) use of aspirin; C73 Malignant neoplasm of thyroid gland; F41.9 Anxiety disorder, unspecified
CPT/HCPCS: 32550; 71045; 75989; C1729; J0690; J2704; J7030

== ENCOUNTER 2022-11-14 13:54 | Outpatient (CLI) | payer MEDICARE, SELFPAY ==
--- NOTE | 2022-11-14 14:02 | XRR_ITS ---
PROCEDURE INFORMATION: Exam: XR Chest Exam date and time: 11/14/2022 2:05 PM Age: 82 years old Clinical indication: Condition or disease; Lung condition and disease; Pleural effusion; Other: History of thyroid cancer; Prior surgery; Surgery date: 6+ months; Surgery type: Unspecified TECHNIQUE: Imaging protocol: Radiologic exam of the chest. Views: 2 views. COMPARISON: CR XR chest 1V portable [id number] 11/07/2022 9:14 AM FINDINGS: Tubes, catheters and devices: Continued right chest tube. Lungs: Possible 2.6 cm lung mass in the left mid lung field. Pleural spaces: Interval appearance of large right pleural fluid collection. Continued large right pneumothorax which is now a hydropneumothorax. Heart/Mediastinum: Unremarkable. No cardiomegaly. Vasculature: Calcification of the thoracic aorta and/or great vessels consistent with atherosclerotic vessel disease. Bones/joints: Unremarkable. XR/XR chest 2V* [id number] IMPRESSION: 1. Continued right chest tube. 2. Interval appearance of large right pleural fluid collection. 3. Continued large right pneumothorax which is now a hydropneumothorax. 4. Possible 2.6 cm lung mass in the left mid lung field.
== END 2022-11-14 13:55 | disposition home or self-care (01) ==
PROVIDERS: PCP Family Medicine; Visit Provider Nurse Practitioner Family
DX: J90 Pleural effusion, not elsewhere classified (principal)
CPT/HCPCS: 71046; 99213

== ENCOUNTER → 2022-11-28 13:25 | Outpatient (BNVA) | payer MEDICARE, SELFPAY | PROVIDERS: PCP Family Medicine; Visit Provider Dermatology | DX: B35.3 Tinea pedis (principal); C44.92 Squamous cell carcinoma of skin, unspecified; L57.0 Actinic keratosis | CPT/HCPCS: 17000; 17003; 99213 ==